=== PATIENT | female | born 1930 ===

== ENCOUNTER 2017-02-17 11:37 | Observation (INO) ==
[2017-02-17] MEDS ORDERED: NITROGLYCERIN SL 0.4 MG TABLET SL PRN (12:04)
[2017-02-17] MEDS ORDERED: ONDANSETRON 4 MG/2 ML VIAL IV STA (12:04)
[2017-02-17] MEDS ORDERED: ENOXAPARIN 100 MG/ML SYRINGE SUBCUT STA (12:04)
[2017-02-17] MEDS ORDERED: ASPIRIN 325 MG TABLET PO STA (12:04)
[2017-02-17] MEDS ORDERED: NITROGLYCERIN 2% OINT 1 INCH/GM PACK TOP STA (12:04)
--- NOTE | 2017-02-17 12:32 | XRay Report ---
History: Chest pain Date: 02/17/2017 Study: Chest x-ray PA and lateral Comparison exam: August 05, 2014 The cardiac silhouette is not enlarged. There is no mediastinal mass. The pulmonary vasculature is not engorged. There is no pleural effusion. There is no acute pulmonary infiltrate. The lungs are well-expanded. There is a prominent cardiac fat pad on the left. There is some stable fine reticular chronic interstitial disease in the mid to lower lungs more so than the upper lungs, similar to the previous study. There is osteopenia and mild thoracic spondylosis. Impression: No acute cardiopulmonary process compared to the previous study. Chronic interstitial lung disease as before PROCEDURE INTERPRETED AT [facility] DEPARTMENT OF RADIOLOGY Final Report Signed by: Dr. Sara Torres
--- NOTE | 2017-02-17 12:43 | Emergency Department Note ---
Aman Hodges Rolonda, am scribing for, and in the presence of, Moncho Ariza MD 12: 05. Annita Hodges James D, MD, personally performed the services described in this documentation, ascribed by Tre Newton in my presence, and it is both accurate and complete . Arrival - Arrival Chief Complaint: Chest Pain ED Nursing Triage Note: Brought in by EMS c/o midsternal chest pain radiating through to back-onset 1100 today. Denies pain at current. Mode of Arrival: Stretcher Limitations: No Limitations Source: Patient, Old Records Reviewed, RN Notes Reviewed - History of Present Illness HPI Narrative: Pt is an 86 y/o female who presents to the ED fir further evaluation of chest pain with an onset of hours. PMHx of angina and COPD. Pt states that she felt as if she had angina after she ate lunch. She states that she had 4 baby [employer]. She stated that the pain radiated through to her back. Pt denies diaphoresis and nausea. states that pt has a nebulizer but has not used it lately. She has no chest pain during exam. Pt is f/u by [facility]. No other complaint/pain in ED. Onset (ago): hour(s) Consistency: constant Severity: mild Severity scale (1-10): 3 Quality: other (radiating) Date of Last Menstrual Period: hysterectomy Allergies/Adverse Reactions: Allergies Allergy/AdvReac Type Severity Reaction Status Date / Time Sulfa (Sulfonamide Allergy Severe HEART RATE Verified 05/31/16 05:57 Antibiotics) DECREASES codeine Allergy Mild NAUSEA/VOMI Verified 05/31/16 05:57 TING Vkfeftc-Oii-Nzx Reductase Allergy Mild WEAKNESS/FA Verified 05/31/16 05:57 Inhibitor LLS Home Medications: Home Medications Medication Instructions Recorded Confirmed Type Levothyroxine Tab [Synthroid Tab] 100 mcg PO QAM 09/12/15 02/17/17 History Tramadol HCl [Tramadol Tab] 1 tablet PO QAM 09/12/15 02/17/17 History predniSONE [Prednisone] 5 mg PO QAM 09/12/15 02/17/17 History Gabapentin Cap/Tab [Neurontin 300 mg PO BID capsule 10/04/15 02/17/17 Rx Cap/Tab] Ipratropium/Albuterol Sulfate 3 ml INH TID 02/17/17 02/17/17 History [Iprat-Albut 0.5-3(2.5) mg/3 ml] Latanoprost [Latanoprost 0.005 % 1 drop LEFT EYE BEDTIME 02/17/17 02/17/17 History Oph Soln] Review of System - Review of System 12 point system: reviewed and no additional remarkable complaints except as stated - Review of System Constitutional: Absent: chills, diaphoresis, fever Eyes: Absent: discharge Head/Ears/Nose/Throat: Absent: earache Respiratory: Absent: cough Cardiovascular: Present: chest pain. Absent: palpitations Gastrointestinal: Absent: abdominal pain, nausea, vomiting Genitourinary female: Absent: dysuria Musculoskeletal: Absent: arm pain, neck pain Skin: Absent: rash Neurological: Absent: headache Psychiatric: Absent: anxiety Endocrine: Absent: cold intolerance Hematological/Lymphatic: Absent: easy bleeding Allergic/Immunologic: Absent: facial swelling Medical,Surgical,& Family Hx - Medical History Psychological: History of: Anxiety Disorders Neurology: History of: Peripheral Neuropathy No history of: Seizures, TIA HEENT: History of: Ear Problem, Eye Problem, Dental Problems Endocrine: History of: Dyslipidemia, Thyroid Disorder (hyper) Rheumatology: History of;: Rheumatoid Arthritis, Rheumatological Problems Respiratory: History of: Asthma, Bronchitis, COPD (KEVON), Pneumonia, Respiratory Problems Renal: No history of: Renal (Kidney) Cancer, Renal Problems Genitourinary: History of: Recurring Urinary Tract Infections (PAST HISTORY) No history of: Bladder Problem, Kidney Stones, Genitourinary Cancer, Problems Gastrointestinal: History of: GERD, GI Problems No history of: Gastrointestinal Bleed, Hemorrhoids, Hematochezia, Hepatitis, Liver Problems, Gastrointestinal Cancer Musculoskeletal: History of: Degenerative Disk Disease, Osteoporosis ( osteoarthritis), Musculoskeletal Problems Hematology: No history of: Blood Transfusion Reaction, Bleeding Problems Reproductive: No history of: Reproductive Problems - Surgical History Cardiac Surgeries: Patient Denies: Cardiac Catheterization Thoracic Surgeries: Patient denies;: Organ Transplant Neurologic Surgeries: Patient denies: Neurologic Surgery HEENT Surgeries: Surgical HX of: Eye Surgery (cataract 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), Tonsilectomy & Adenoidectomy (has one tonsil) Patient denies: Thyroid Surgery Abdominal Surgeries: Surgical HX of: Abdominal Surgery, Appendectomy, Cholecystectomy, EGD, Hernia Repair Patient denies: Gastric Bypass Surgery Reproductive Surgeries: Surgical HX of;: Section (1), Gynecologic Surgery, Hysterectomy Patient denies;: Genitourinary Surgery Orthopedic Surgeries: Surgical HX of;: Orthopedic Surgery (lt tkr), Total Hip Replacement (right), Total Knee Replacement - Family History Family History: Reports;: Family Cancer (mom), Family Diabetes (dad), Family Heart Disease (dad and brothers), Family Hypertension, Family Stroke (dad) - Social History Smoking Status: Smoker, status unknown Frequency of Alcohol Use: None Type of Drug Use: None Exam Vital Signs: Vital Signs Temperature 98.0 F 02/17/17 11:44 Pulse Rate 80 02/17/17 13:00 Respiratory Rate 18 02/17/17 13:00 Blood Pressure 148/70 02/17/17 13:00 O2 Sat by Pulse Oximetry 99 02/17/17 13:00 GENERAL: This is a well-nourished well-developed white female in no apparent distress. VITAL SIGNS: Reviewed HEENT: Head is atraumatic and normocephalic. Pupils are equal round react to light. Extraocular movements are intact. Oropharynx is benign with moist mucous membranes. NECK: Neck is soft and supple without tenderness. There are no masses. There is no lymphadenopathy. LUNGS: Lungs are clear to auscultation. Chest rises symmetrically. There is no chest wall tenderness. CV: Heart is regular rate and rhythm without murmurs rubs or gallops. ABDOMEN: Abdomen is soft, nontender to palpation. There are no abdominal abnormal masses palpated. There is no organomegaly. Bowel sounds are present and active. SKIN: Skin is warm and dry. No rash. EXTREMITIES: Patient has full range of motion without tenderness. There is no pedal edema. NEUROLOGIC: Awake alert and oriented 4. Cranial nerves II through XII are intact. Motor is 5 over 5 in all extremities bilaterally. Course - Consultations Consultation #1: Discussed with Dr. Erum Velasquez. Patient will be admitted to her service. Initial orders written for her. She will assume care of the patient upon patient's arrival to the lund. Time: 13:48 Results - Labs CBC & BMP: 02/17/17 11:55 02/17/17 11:55 Lab Results: I have reviewed the patients labs Labs: Laboratory Tests 02/17/17 11:55 Troponin I < 0.015 - EKG EKG results: interpreted by ERMD - Impressions EKG: Normal sinus rhythm with rate 85, low voltage QRS, nonspecific ST-T wave changes. - Diagnostic Findings Procedure: Chest x-ray: image reviewed by me (No infiltrates, no pleural effusions.) Disposition Clinical Impression: Chest pain Case discussed with: patient, patient's family Disposition: Still a Patient Condition: Stable
[2017-02-17] MEDS ORDERED: ENOXAPARIN 100 MG/ML SYRINGE SUBCUT ONE (12:45)
[2017-02-17] MEDS ORDERED: NITROGLYCERIN 2% OINT 1 INCH/GM PACK TOP ONE (12:46)
[2017-02-17 12:51] LABS: Basophils % 0.3 % (0.0-0.8); Eosinophils # 0.1 10*3/uL (0.0-0.87); Eosinophils % 0.8 % (0.00-10.9); Hematocrit 34.4 VOL% (35.7-47.0); Immature Granulocytes % 0.8 %; Immature Granulocytes Absolute 0.09 #; Lymphocytes # 1.4 10*3/uL (1.4-4.0); Lymphocytes % 11.5 % (21.3-54.2); Mean Corpuscular Hemoglobin 30 PG (27-34); Mean Corpuscular Volume 92.5 FL (87-102); Mean Platelet Volume 10.3 FL (9.6-12.0); Monocytes # 0.8 10*3/uL (0.11-0.8); Monocytes % 6.4 % (1.7-12.7); Neutrophils # 9.6 10*3/uL (1.4-7.4); Neutrophils % 80.2 % (38.7-73.9); Platelet Count 277 T/CUMM (130-400); Red Blood Count 3.72 MC/CUMM (3.8-5.5); Red Cell Distribution Width 13.9 % (9.3-17.3)
[2017-02-17 13:09] LABS: PT Patient Result 10.2 SECS; Partial Thromboplastin Time 24.1 SECS (0-40)
[2017-02-17 13:24] LABS: Albumin 2.9 G/DL (3.4-5.0); Bilirubin,Total 0.9 MG/DL (0.2-1.0); Calcium 8.9 MG/DL (8.5-10.1); Osmolality,Calculated 275.8 MOS/KG (273-304); Potassium 4.2 MMOL/L (3.5-5.1); Total Protein 6.9 G/DL (6.4-8.3)
[2017-02-17] MEDS ORDERED: GABAPENTIN 300 MG CAPSULE PO STA (14:05)
[2017-02-17] MEDS ORDERED: GABAPENTIN 300 MG CAPSULE ONE (14:07)
--- NOTE | 2017-02-17 14:43 | Rheumatology Consultation ---
Assessment and Plan - Time spent with patient Time spent with patient: Greater than 30 minutes (1) Chest pain Status: Acute Assessment and plan: Ms. Callahan an 86 Y pleasant female with history of COPD and Rheumatoid arthritis is in ED with new onset acute chest pain, which involves anterior chest wall at costochondral junction. She has had EKG and trop done are unremarkable. Agree with plan to get serial EKG and trops for suspicious for CAD . Current Visit: Yes (2) Rheumatoid arthritis Problem details: left more so than right Status: Chronic Current Visit: No Qualifiers: Rheumatoid arthritis location: knee Laterality: bilateral (3) Costochondritis Status: Acute Assessment and plan: Ms. Callahan an 86 Y pleasant female with history of COPD and Rheumatoid arthritis is in ED with new onset acute chest pain, which involves anterior chest wall at costochondral junction, which is tender on palpation and is highly consistent with Costochondritis and less likely Pleuritis. She has history of COPD and has not had CT chest done in recent past to evaluate for pulmonary bleb. X-ray chest is unremarkable. She has no signs of dyspnea or hypoxemia or EKG abnormality suggestive of PE or acute RI. She has had EKG and trop done are unremarkable. I recommend CT chest for further evaluation. Agree with ED physician's plan to get serial EKG and trops to evaluate for chest pain. If EKG, trops are negative are unremarkable, then I recommend to start her on higher dose oral prednisone at dose of 15 mg bid for next 7 days and then decrease her dose back to home dose of 5 mg bid. Also recommend to provide GI prophylaxis with omeprazole 20 mg daily for next 7 days. She has history of RA, for which she is on oral prednisone 5 mg bid and tramadol prn. She has mild active joints RA, which will require evaluation as outpatient at our office. I am very thankful to Dr. Erum Velasquez to provide me opportunity to participate in patient care. Please feel free to call me for further questions. Current Visit: Yes History of Present Illness - Data of Consult Patient: new to practice Consult date: 02/17/17 Requesting Physician: Erum Velasquez - Consult Narrative Reason for consult: chest pain History of present illness: Ms. Callahan is a 86 year old female, with history of rheumatoid arthritis and COPD is here in ED for new onset chest pain. According to patient, she was in her usual state of health till 11 am in morning, when she noticed acute onset anterior chest wall pain, moderate intensity, localized to midsternum, worsens with deep breath and improves with nothing. She denies similar symptoms in past. She denies fever, chills, cough, night sweats, sputum production, weight loss or nausea. She lives at assist living home. She has had recent exposure to her daughter, who has active sinus infection. She was diagnosed with RA few years ago. She was initially managed with methotrexate and later on Humira, but she developed some side effects involved with lungs. She was then kept on azathioprine by Dr. Shannon (mangle tender) at [place]. She stopped taking azathioprine for last 6 months as she noticed nausea with medication. She is currently on oral prednisone 5 mg bid and Tramadol as needed. CC: Erum Velasquez, DO - Home Medications and Allergies Home Medications: Home Medications Medication Instructions Recorded Confirmed Type Levothyroxine Tab [Synthroid Tab] 100 mcg PO DAILY@0700 09/12/15 02/17/17 History Tramadol HCl [Tramadol Tab] 1 tablet PO QAM 09/12/15 02/17/17 History predniSONE [Prednisone] 5 mg PO QAM 09/12/15 02/17/17 History Gabapentin Cap/Tab [Neurontin 300 mg PO BID capsule 10/04/15 02/17/17 Rx Cap/Tab] Ipratropium/Albuterol Sulfate 3 ml INH TID 02/17/17 02/17/17 History [Iprat-Albut 0.5-3(2.5) mg/3 ml] Latanoprost [Latanoprost 0.005 % 1 drop LEFT EYE BEDTIME 02/17/17 02/17/17 History Oph Soln] Allergies/Adverse Reactions: Allergies Allergy/AdvReac Type Severity Reaction Status Date / Time Sulfa (Sulfonamide Allergy Severe HEART RATE Verified 05/31/16 05:57 Antibiotics) DECREASES codeine Allergy Mild NAUSEA/VOMI Verified 05/31/16 05:57 TING Gwoscuc-Ijm-Pzs Reductase Allergy Mild WEAKNESS/FA Verified 05/31/16 05:57 Inhibitor LLS Medical,Surgical,& Family Hx - Medical History Psychological: History of: Anxiety Disorders Neurology: History of: Peripheral Neuropathy No history of: Seizures, TIA HEENT: History of: Ear Problem, Eye Problem, Dental Problems Endocrine: History of: Dyslipidemia, Thyroid Disorder (hyper) Rheumatology: History of;: Rheumatoid Arthritis, Rheumatological Problems Respiratory: History of: Asthma, Bronchitis, COPD (KEVON), Pneumonia, Respiratory Problems Renal: No history of: Renal (Kidney) Cancer, Renal Problems Genitourinary: History of: Recurring Urinary Tract Infections (PAST HISTORY) No history of: Bladder Problem, Kidney Stones, Genitourinary Cancer, Problems Gastrointestinal: History of: GERD, GI Problems No history of: Gastrointestinal Bleed, Hemorrhoids, Hematochezia, Hepatitis, Liver Problems, Gastrointestinal Cancer Musculoskeletal: History of: Degenerative Disk Disease, Osteoporosis ( osteoarthritis), Musculoskeletal Problems Hematology: No history of: Blood Transfusion Reaction, Bleeding Problems Reproductive: No history of: Reproductive Problems - Surgical History Cardiac Surgeries: Patient Denies: Cardiac Catheterization Thoracic Surgeries: Patient denies;: Organ Transplant Neurologic Surgeries: Patient denies: Neurologic Surgery HEENT Surgeries: Surgical HX of: Eye Surgery (cataract 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), Tonsilectomy & Adenoidectomy (has one tonsil) Patient denies: Thyroid Surgery Abdominal Surgeries: Surgical HX of: Abdominal Surgery, Appendectomy, Cholecystectomy, EGD, Hernia Repair Patient denies: Gastric Bypass Surgery Reproductive Surgeries: Surgical HX of;: Section (1), Gynecologic Surgery, Hysterectomy Patient denies;: Genitourinary Surgery Orthopedic Surgeries: Surgical HX of;: Orthopedic Surgery (lt tkr), Total Hip Replacement (right), Total Knee Replacement - Family History Family History: Reports;: Family Cancer (mom), Family Diabetes (dad), Family Heart Disease (dad and brothers), Family Hypertension, Family Stroke (dad) - Social History Smoking Status: Smoker, status unknown Frequency of Alcohol Use: None Type of Drug Use: None Exam Rheumatology - Constitutional Vitals: Vital Signs Temp Pulse Resp BP BP Pulse Ox 02/17/17 13:00 80 18 148/70 99 02/17/17 12:30 82 153/95 99 02/17/17 12:00 84 163/86 99 02/17/17 11:44 98.0 F 96 H 20 179/91 96 General appearance: no acute distress, over weight Exam: localized tenderness at anterior chest wall at 3-6 ribs bilateral at Costochondral junction - Head Head exam: Present: normal inspection - Eye Eye exam: Present: EOMI Pupils: Present: RYLEY - ENT ENT exam: Present: normal exam, normal oropharynx - Neck Neck exam: Present: normal inspection - Expanded Respiratory Exam Location: Right Lower: decreased breath sounds - Cardiovascular Cardiovascular exam: Present: regular rate and rhythm - GI/Abdominal GI/Abdominal exam: Present: normal bowel sounds - Extremities Exam Extremities exam: Present: normal inspection - Neurological Exam Neurological exam: Present: oriented X3, CN II-XII intact - Psychiatric Psychiatric exam: Present: normal affect - Skin Skin exam: Present: normal color Results - Labs CBC & BMP: 02/17/17 11:55 02/17/17 11:55 - Diagnostic Findings Procedure: Chest x-ray: image reviewed by me, report reviewed by me Specialty Discharge - Follow Up or Referrals Follow up with: Guido Calero MD [Physician] - 1 Month
--- NOTE | 2017-02-17 15:01 | EKG Report ---
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
--- NOTE | 2017-02-17 15:40 | EKG Report ---
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
[2017-02-17] MEDS ORDERED: ACETAMINOPHEN 325 MG TABLET PO PRN (15:48)
[2017-02-17] MEDS ORDERED: ONDANSETRON 4 MG/2 ML VIAL IV PRN (15:48)
--- NOTE | 2017-02-17 17:21 | Internal Med History&Physical ---
Assessment and Plan (1) Asthma Status: Chronic Current Visit: Yes Qualifiers: Asthma severity: mild intermittent Asthma complication type: with acute exacerbation Qualified Code(s): J45.21 - Mild intermittent asthma with (acute ) exacerbation (2) Rheumatoid arthritis Problem details: left more so than right Status: Chronic Current Visit: Yes Qualifiers: Rheumatoid arthritis location: knee Rheumatoid factor presence: with rheumatoid factor Laterality: bilateral Qualified Code(s): M05.761 - Rheumatoid arthritis with rheumatoid factor of right knee without organ or systems involvement; M05.762 - Rheumatoid arthritis with rheumatoid factor of left knee without organ or systems involvement (3) Anemia Status: Chronic Current Visit: Yes Qualifiers: Anemia type: iron deficiency Iron deficiency anemia type: inadequate dietary iron intake Qualified Code(s): D50.8 - Other iron deficiency anemias (4) COPD (chronic obstructive pulmonary disease) Status: Chronic Current Visit: Yes (5) Chest pain Status: Acute Current Visit: Yes Qualifiers: Chest pain type: intercostal pain Qualified Code(s): R07.82 - Intercostal pain (6) Costochondritis Status: Acute Current Visit: Yes (7) Hypertension Status: Chronic Current Visit: Yes Qualifiers: Hypertension type: essential hypertension Qualified Code(s): I10 - Essential (primary) hypertension History of Present Illness Chief complaint: chest pain History of present illness: Ms. Callahan is a 86 year old female with history of RA frequently uncontrolled joint pain, chronic pain, OA, HTN, hypothyroid, anemia of iron deficiency and poor dietary intake, COPD/asthma/bronchitis, restrictive airway disease, who presented to ER with persistent chest pain and shortness of breath. Dr. Calero was consulted for uncontrolled RA and to establish. Will order CT chest and solumedrol. CT results and DMARDs to be evaluated and adjusted per Dr. Calero. Chest pain likely non-cardiac. Home Medications Medication Instructions Recorded Confirmed Type Levothyroxine Tab [Synthroid Tab] 100 mcg PO DAILY@0700 09/12/15 02/17/17 History Tramadol HCl [Tramadol Tab] 1 tablet PO QAM 09/12/15 02/17/17 History predniSONE [Prednisone] 5 mg PO QAM 09/12/15 02/17/17 History Gabapentin Cap/Tab [Neurontin 300 mg PO BID capsule 10/04/15 02/17/17 Rx Cap/Tab] Ipratropium/Albuterol Sulfate 3 ml INH TID 02/17/17 02/17/17 History [Iprat-Albut 0.5-3(2.5) mg/3 ml] Latanoprost [Latanoprost 0.005 % 1 drop LEFT EYE BEDTIME 02/17/17 02/17/17 History Oph Soln] Allergies Allergy/AdvReac Type Severity Reaction Status Date / Time Sulfa (Sulfonamide Allergy Severe HEART RATE Verified 05/31/16 05:57 Antibiotics) DECREASES codeine Allergy Mild NAUSEA/VOMI Verified 05/31/16 05:57 TING Htqkbcr-Bzh-Yzi Reductase Allergy Mild WEAKNESS/FA Verified 05/31/16 05:57 Inhibitor LLS Medical,Surgical,& Family Hx - Medical History Cardio: History of: Hypertension Psychological: History of: Anxiety Disorders Neurology: History of: Peripheral Neuropathy No history of: Seizures, TIA HEENT: History of: Ear Problem, Eye Problem, Dental Problems Endocrine: History of: Dyslipidemia, Thyroid Disorder (hypothyroid) Rheumatology: History of;: Rheumatoid Arthritis, Rheumatological Problems Respiratory: History of: Asthma, Bronchitis, COPD (KEVON), Pneumonia, Respiratory Problems Renal: No history of: Renal (Kidney) Cancer, Renal Problems Genitourinary: History of: Recurring Urinary Tract Infections (PAST HISTORY) No history of: Bladder Problem, Kidney Stones, Genitourinary Cancer, Problems Gastrointestinal: History of: GERD, GI Problems No history of: Gastrointestinal Bleed, Hemorrhoids, Hematochezia, Hepatitis, Liver Problems, Gastrointestinal Cancer Musculoskeletal: History of: Degenerative Disk Disease, Osteoporosis ( osteoarthritis), Musculoskeletal Problems Hematology: History of: Anemia No history of: Blood Transfusion Reaction, Bleeding Problems Reproductive: No history of: Reproductive Problems - Surgical History Cardiac Surgeries: Patient Denies: Cardiac Catheterization Thoracic Surgeries: Patient denies;: Organ Transplant Neurologic Surgeries: Patient denies: Neurologic Surgery HEENT Surgeries: Surgical HX of: Eye Surgery (cataract 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), Tonsilectomy & Adenoidectomy (has one tonsil) Patient denies: Thyroid Surgery Abdominal Surgeries: Surgical HX of: Abdominal Surgery, Appendectomy, Cholecystectomy, EGD, Hernia Repair Patient denies: Gastric Bypass Surgery Reproductive Surgeries: Surgical HX of;: Section (1), Gynecologic Surgery, Hysterectomy Patient denies;: Genitourinary Surgery Orthopedic Surgeries: Surgical HX of;: Orthopedic Surgery (lt tkr), Total Hip Replacement (right), Total Knee Replacement - Family History Family History: Reports;: Family Cancer (mom), Family Diabetes (dad), Family Heart Disease (dad and brothers), Family Hypertension, Family Stroke (dad) - Social History Smoking Status: Former smoker Have you smoked in the last 12 months: No (quit smoking about 5-6 years ago) Frequency of Alcohol Use: None Type of Drug Use: None Marital Status: Lives With:: assisted living Functional capacity: uses cane/walker - Constitutional Constitutional: Present: weakness - Cardiovascular Cardiovascular: Present: chest pain with activity - Respiratory Respiratory: Present: dyspnea, wheezing - Musculoskeletal Musculoskeletal: Present: arthralgias, back pain - Neurological Neurological: Present: focal weakness, frequent falls, paresthesias Exam - Constitutional Vitals: Period Temp Pulse Resp BP Sys/Melgoza Pulse Ox Last 24 Hr 97.1 F-98.0 F 80-101 16-22 132-179/60-95 94-99 General appearance: no acute distress - Head Head exam: Present: normocephalic - Eye Eye exam: Present: EOMI - Respiratory Respiratory exam: Present: wheezes (scattered and diffuse upon expiration) - Cardiovascular Cardiovascular exam: Present: regular rate and rhythm, systolic murmur (soft) - GI/Abdominal GI/Abdominal exam: Present: soft. Absent: tenderness - Extremities Exam Extremities exam: Absent: edema - Neurological Exam Neurological exam: Present: alert, oriented X3 - Psychiatric Psychiatric exam: Present: normal mood - Skin Skin exam: Present: warm, dry Results - Labs CBC & BMP: 02/17/17 11:55 02/17/17 11:55 - EKG EKG shows: sinus rhythm - Diagnostic Findings Procedure: Chest x-ray: report reviewed by me, image reviewed by me (unchanged interstial fibrosis)
[2017-02-17] MEDS ORDERED: traMADol 50 MG TABLET PO PRN (19:06)
[2017-02-17] MEDS ORDERED: traZODone 50 MG TABLET PO PRN (19:07)
[2017-02-17] MEDS: methylPREDNISolone SOD SUC 40 MG/1 ML VIAL IV SCH (19:31)
[2017-02-17] MEDS: SODIUM CHLORIDE 0.9% 1,000 ML IV SCH (19:31)
[2017-02-17] MEDS: ALBUTEROL/IPRATROPIUM 3 ML NEB RESP TX SCH (20:36)
[2017-02-17] MEDS: BUDESONIDE 0.25 MG/2 ML NEB RESP TX SCH (20:36)
[2017-02-17 20:56] LABS: Apearance,Urine CLOUDY (Clear); Bacteria,Urine Occasional /HPF (Few); Bilirubin,Urine Negative (Negative); Blood, Urine Small mg/dL (Negative); Glucose,Urine (UA) Negative (Negative); Ketones,Urine Negative (Negative); Mucus,Urine Occasional /LPF (Occasional); Nitrite,Urine Negative (Negative); Protein,Urine Negative; RBC,Urine 1 /HPF (0-4); Squamous Epithelial Cell,Urine Occasional /HPF (0-10); Urine Color Yellow (Yellow); Urine Specific Gravity 1.008 (1.001-1.035); Urine Urobilinogen < 2.0 EU/DL (0.2-1.0); WBC,Urine 1 /HPF (0-6)
[2017-02-17] MEDS ORDERED: LATANOPROST 0.005% OPH SOLN 2.5 ML BOTTLE LEFT EYE SCH (21:00)
[2017-02-17] MEDS: GABAPENTIN 300 MG CAPSULE PO SCH (21:25)
[2017-02-17] MEDS: DOCUSATE SODIUM 100 MG CAPSULE PO SCH (21:25)
[2017-02-17] MEDS ORDERED: KETOROLAC 15 MG/1 ML VIAL IV SCH (22:00)
[2017-02-17] MEDS ORDERED: cloNIDine 0.1 MG TABLET PO SCH (22:30)
[2017-02-18] MEDS: SODIUM CHLORIDE 0.9% 1,000 ML IV SCH ×2 (00:51→04:00)
[2017-02-18] MEDS: methylPREDNISolone SOD SUC 40 MG/1 ML VIAL IV SCH ×2 (03:07→10:22)
[2017-02-18 06:27] LABS: Alanine Aminotransferase 15 U/L (13-56); Albumin 2.7 G/DL (3.4-5.0); Alkaline Phosphatase 52 U/L (45-117); Aspartate Amino Transferase 13 U/L (0-37); Bilirubin,Total < 0.39 MG/DL (0.2-1.0); Blood Urea Nitrogen 18 MG/DL (7-18); Calcium 8.6 MG/DL (8.5-10.1); Glucose 158 MG/DL (74-106); Magnesium 2.4 MG/DL (1.8-2.4); Osmolality,Calculated 281.5 MOS/KG (273-304); Potassium 4.7 MMOL/L (3.5-5.1); Sodium 139 MMOL/L (136-145); Thyroid Stimulating Hormone 0.355 uIU/ml (0.358-3.74); Total Protein 6.3 G/DL (6.4-8.3)
[2017-02-18 06:31] LABS: 25 Hydroxy Vitamin D Total 5.8 NG/ML
[2017-02-18] MEDS ORDERED: LEVOTHYROXINE 100 MCG TABLET PO SCH (07:00)
[2017-02-18] MEDS: BUDESONIDE 0.25 MG/2 ML NEB RESP TX SCH (07:56)
[2017-02-18] MEDS: ALBUTEROL/IPRATROPIUM 3 ML NEB RESP TX SCH (07:56)
[2017-02-18] MEDS ORDERED: ENOXAPARIN 30 MG/0.3 ML SYRINGE SUBCUT SCH (08:00)
--- NOTE | 2017-02-18 08:34 | CT Report ---
History: Chest pain. Rheumatoid arthritis Date: 02/18/2017 Study: CT chest with and without IV contrast Comparison exam: No previous Spiral CT sections were obtained through the lungs before and after the IV administration of 80 mL of Omnipaque 350 without immediate complication. The CT exam was performed using one or more of the following dose reduction techniques: Automated exposure control, adjustment of the mA and/or kV according to patient size, or use of iterative reconstruction technique. There is no thoracic aortic aneurysm or dissection. There is no mediastinal mass. There is no abelardo mediastinal lymphadenopathy by short axis diameter criteria. There is no obvious pulmonary embolus. There is trace pericardial fluid. There is no significant pleural effusion. There is some dependent atelectasis in the lower lungs. There is no confluent airspace disease to suggest pneumonia. There is no pulmonary mass. There are some scattered mild to moderate thoracic spondylosis. There are some rounded simple cysts of the partially visualized kidneys bilaterally Impression: No acute process. Dependent atelectasis in the lower lungs. Bilateral benign renal cysts PROCEDURE INTERPRETED AT [facility] DEPARTMENT OF RADIOLOGY Final Report Signed by: Dr. Sara Torres
[2017-02-18] MEDS ORDERED: traMADol 50 MG TABLET PO SCH (09:00)
[2017-02-18] MEDS ORDERED: PANTOPRAZOLE 40 MG TABLET PO SCH (09:00)
[2017-02-18] MEDS ORDERED: predniSONE 5 MG TABLET PO SCH (09:00)
[2017-02-18] MEDS: GABAPENTIN 300 MG CAPSULE PO SCH (10:21)
[2017-02-18] MEDS: DOCUSATE SODIUM 100 MG CAPSULE PO SCH (10:21)
[2017-02-18] MEDS ORDERED: ERGOCALCIFEROL 50,000 UNIT CAPSULE PO ONE (11:47)
[2017-02-18 17:01] VITALS: BP 176/83
--- NOTE | 2017-02-18 18:03 | Discharge Summary ---
Hospital Course - Hospital Course Hospital Course: Ms. Callahan is a 86 year old female with history of RA frequently uncontrolled joint pain, chronic pain, OA, HTN, hypothyroid, anemia of iron deficiency and poor dietary intake, COPD/asthma/bronchitis, restrictive airway disease, who presented to ER with persistent chest pain and shortness of breath. Dr. Calero was consulted for uncontrolled RA and to establish. Will order CT chest and solumedrol. CT results and DMARDs to be evaluated and adjusted per Dr. Calero. Chest pain likely non-cardiac. She is feeling much better today after receiving Toradol and Solumedrol. CT chest largely unremarkable except for atelectasis. She will be discharged to home on Prednisone taper. Diagnosis - Discharge Diagnosis (1) Asthma Status: Chronic (2) Rheumatoid arthritis Status: Chronic (3) Anemia Status: Chronic (4) COPD (chronic obstructive pulmonary disease) Status: Chronic (5) Chest pain Status: Acute (6) Costochondritis Status: Acute (7) Hypertension Status: Chronic Specialty Discharge - Follow Up or Referrals Follow up with: Guido Calero MD [Physician] - 1 Month Discharge Plan - Discharge Data Disposition: Disch To Home/Self Care Condition at Discharge: Stable Discharge Diet: low fat, low cholesterol - Discharge Medications New cloNIDine TAB [Catapres Tab] 0.1 mg PO BEDTIME #30 tablet Docusate Sodium Cap [Colace Cap] 100 mg PO BID capsule Acetaminophen Tab [Tylenol Tab] 650 mg PO Q6H PRN tablet PRN Reason: Fever > 100.4 Or Headache Latanoprost 0.005% Oph Soln [Xalatan 0.005% Oph Soln] 1 drop LEFT EYE BEDTIME bottle Continue Tramadol HCl [Tramadol Tab] 1 tablet PO QAM Ipratropium/Albuterol Sulfate [Iprat-Albut 0.5-3(2.5) mg/3 ml] 3 ml INH TID Latanoprost [Latanoprost 0.005 % Oph Soln] 1 drop LEFT EYE BEDTIME Gabapentin Cap/Tab [Neurontin Cap/Tab] 300 mg PO BID capsule Changed Levothyroxine Tab [Synthroid Tab] 75 mcg PO DAILY@0700 #30 predniSONE [Prednisone] 15 mg PO QAM #10 tablet - Follow Up or Referral Follow Up: Guido Calero MD [Physician] - 1 Month Erum Velasquez DO [Primary Care Provider] - - Forms/Instructions Additional Discharge Instructions: Follow up with Dr. Calero in clinic per appointment set. Follow up with Dr. Herb Velasqeuz in clinic within 1-2 weeks. Exam - Constitutional Vitals: Period Temp Pulse Resp BP Sys/Melgoza Pulse Ox Last 24 Hr 96.3 F-98.4 F 71-99 16-108 138-180/62-84 94-99 General appearance: no acute distress - Respiratory Respiratory exam: Present: clear to auscultation bilaterally (wheezes resolved) - Cardiovascular Cardiovascular exam: Present: regular rate and rhythm - GI/Abdominal GI/Abdominal exam: Absent: tenderness - Extremities Exam Extremities exam: Absent: edema - Neurological Exam Neurological exam: Present: alert - Psychiatric Psychiatric exam: Present: normal affect - Skin Skin exam: Present: warm, dry Discharge Results Labs on day of discharge: Labs from last 24 hours 02/18/17 02/18/17 02/17/17 04:51 04:51 Unknown Sodium 139 Potassium 4.7 Chloride 105 Carbon Dioxide 30 Anion Gap 8.7 BUN 18 Creatinine 0.60 GFR Calculation 81 BUN/Creatinine Ratio 30.00 H Glucose 158 H Calculated Osmolality 281.5 Calcium 8.6 Magnesium 2.4 Total Bilirubin < 0.39 AST 13 ALT 15 Alkaline Phosphatase 52 Troponin I Total Protein 6.3 L Albumin 2.7 L Globulin 3.6 H Albumin/Globulin Ratio 0.7 L Vitamin B12 441 25-OH Vitamin D Total 5.8 TSH 3rd Generation 0.355 L Urine Color Yellow Urine Appearance Cloudy Urine pH 7.0 Ur Specific Orange 1.008 Urine Protein Negative Urine Glucose (UA) Negative Urine Ketones Negative Urine Blood Small Urine Nitrate Negative Urine Bilirubin Negative Urine Urobilinogen < 2.0 H Urine Leukocytes Trace Urine RBC 1 Urine WBC 1 Ur Squamous Epith Cells Occasional Urine Bacteria Occasional Urine Mucus Occasional Ur Culture Indicated? Not indicated 02/17/17 17:28 Sodium Potassium Chloride Carbon Dioxide Anion Gap BUN Creatinine GFR Calculation BUN/Creatinine Ratio Glucose Calculated Osmolality Calcium Magnesium Total Bilirubin AST ALT Alkaline Phosphatase Troponin I < 0.015 Total Protein Albumin Globulin Albumin/Globulin Ratio Vitamin B12 25-OH Vitamin D Total TSH 3rd Generation Urine Color Urine Appearance Urine pH Ur Specific Orange Urine Protein Urine Glucose (UA) Urine Ketones Urine Blood Urine Nitrate Urine Bilirubin Urine Urobilinogen Urine Leukocytes Urine RBC Urine WBC Ur Squamous Epith Cells Urine Bacteria Urine Mucus Ur Culture Indicated? - Imaging and Cardiology Procedure: CT - chest: report reviewed by me DS: Provider Date of admission: 02/17/17 13:45 Primary care physician: Erum Velasquez DO Attending physician on admission: Erum Velasquez DO Consults: 02/17/17 15:48 Consult to Case Mgmt/Social Srvs [CONS] Routine Reason for Case Mgmt/Social Srvs: Discharge Planning Consult to Physician [CONS] Routine Comment: RA Consulting Provider: Guido Calero Discharging clinician: Erum Velasquez DO Expected date of discharge: 02/18/17
== END 2017-02-18 19:26 | disposition home or self-care (01) ==
LOC: EDBD → EDUNIT# → N.ED 11:37 → N.EDINP 11:37 → N.TELEN 15:35
PROVIDERS: ADMIT Internal Medicine; ATTEND Internal Medicine

== ENCOUNTER 2017-07-07 15:07 | Inpatient (IN) ==
[2017-07-07] MEDS ORDERED: cefTRIAXone 1,000 MG in SODIUM CHLORIDE 0.9% 100 ML IV STA (16:02)
[2017-07-07 16:41] LABS: Amorphous Crystals,Urine Occasional /HPF (Few); Apearance,Urine Slightly Hazy (Clear); Bilirubin,Urine Negative (Negative); Blood, Urine Small mg/dL (Negative); Glucose,Urine (UA) Negative (Negative); Ketones,Urine 5 mg/dL (Negative); Mucus,Urine Occasional /LPF (Occasional); Nitrite,Urine Positive (Negative); Protein,Urine Negative; Squamous Epithelial Cell,Urine Occasional /HPF (0-10); Urine Specific Gravity 1.017 (1.001-1.035); WBC,Urine 24 /HPF (0-6)
[2017-07-07 16:42] LABS: Urine Color ORANGE (Yellow)
[2017-07-07 16:47] LABS: Basophils % 0.2 % (0.0-0.8); Eosinophils # 0.2 10*3/uL (0.0-0.87); Eosinophils % 1.9 % (0.00-10.9); Hematocrit 35.4 VOL% (35.7-47.0); Hemoglobin 10.9 GM/DL (12.0-16.0); Immature Granulocytes % 1.2 %; Immature Granulocytes Absolute 0.14 #; Lymphocytes # 2.1 10*3/uL (1.4-4.0); Lymphocytes % 17.1 % (21.3-54.2); Mean Corpuscular HGB Conc 30.8 GM/DL (32-36); Mean Corpuscular Hemoglobin 29 PG (27-34); Mean Corpuscular Volume 94.4 FL (87-102); Mean Platelet Volume 10.2 FL (9.6-12.0); Monocytes % 7.9 % (1.7-12.7); Neutrophils # 8.7 10*3/uL (1.4-7.4); Neutrophils % 71.7 % (38.7-73.9); Platelet Count 274 T/CUMM (130-400); Red Blood Count 3.75 MC/CUMM (3.8-5.5); Red Cell Distribution Width 14.9 % (9.3-17.3); White Blood Count 12.1 T/CUMM (4-12)
[2017-07-07] MEDS ORDERED: KETOROLAC 30 MG/1 ML VIAL IV STA (16:47)
[2017-07-07] MEDS ORDERED: KETOROLAC 30 MG/1 ML VIAL ONE (16:48)
[2017-07-07 17:12] LABS: Albumin 2.7 G/DL (3.4-5.0); Bilirubin,Total 0.4 MG/DL (0.2-1.0); Calcium 9.1 MG/DL (8.5-10.1); Osmolality,Calculated 278.8 MOS/KG (273-304); Potassium 4.3 MMOL/L (3.5-5.1); Total Protein 6.7 G/DL (6.4-8.3)
[2017-07-07] MEDS ORDERED: cefTRIAXone 1,000 MG VIAL ONE (17:14)
[2017-07-07] MEDS ORDERED: SODIUM CHLORIDE 0.9% 50 ML IV ONE (17:14)
[2017-07-07] MEDS ORDERED: ONDANSETRON 4 MG/2 ML VIAL IV PRN (21:12)
[2017-07-07] MEDS ORDERED: ACETAMINOPHEN 325 MG TABLET PO PRN (21:12)
[2017-07-07] MEDS: DOCUSATE SODIUM 100 MG CAPSULE PO SCH (22:40)
[2017-07-07] MEDS: traMADol 50 MG TABLET PO PRN (22:40)
[2017-07-08] MEDS ORDERED: LIDOCAINE 5% PATCH TRANSDERM PRN (01:07)
[2017-07-08] MEDS ORDERED: ACETAMINOPHEN 500 MG TABLET PO PRN (01:07)
[2017-07-08] MEDS: methylPREDNISolone SOD SUC 40 MG/1 ML VIAL IV SCH ×3 (02:40→18:02)
[2017-07-08] MEDS: ALBUTEROL/IPRATROPIUM 3 ML NEB RESP TX SCH ×3 (03:35→13:48)
[2017-07-08] MEDS: KETOROLAC 15 MG/1 ML VIAL IV SCH ×3 (06:00→21:13)
[2017-07-08] MEDS: LEVOTHYROXINE 100 MCG TABLET PO SCH (06:49)
[2017-07-08 07:24] LABS: Basophils % 0.3 % (0.0-0.8); Eosinophils # 0.1 10*3/uL (0.0-0.87); Eosinophils % 0.8 % (0.00-10.9); Hematocrit 34.2 VOL% (35.7-47.0); Hemoglobin 10.6 GM/DL (12.0-16.0); Immature Granulocytes Absolute 0.12 #; Lymphocytes # 0.6 10*3/uL (1.4-4.0); Lymphocytes % 5.3 % (21.3-54.2); Mean Corpuscular Hemoglobin 29 PG (27-34); Mean Corpuscular Volume 93.4 FL (87-102); Mean Platelet Volume 10.6 FL (9.6-12.0); Monocytes # 0.3 10*3/uL (0.11-0.8); Monocytes % 2.2 % (1.7-12.7); Neutrophils # 10.7 10*3/uL (1.4-7.4); Neutrophils % 90.4 % (38.7-73.9); Platelet Count 260 T/CUMM (130-400); Red Blood Count 3.66 MC/CUMM (3.8-5.5); Red Cell Distribution Width 14.6 % (9.3-17.3); White Blood Count 11.8 T/CUMM (4-12)
[2017-07-08 07:51] LABS: Calcium 8.4 MG/DL (8.5-10.1); Potassium 4.6 MMOL/L (3.5-5.1)
[2017-07-08] MEDS ORDERED: traMADol 50 MG TABLET PO SCH (09:00)
[2017-07-08] MEDS: DOCUSATE SODIUM 100 MG CAPSULE PO SCH ×4 (09:39→21:12)
[2017-07-08] MEDS: PANTOPRAZOLE 40 MG TABLET PO SCH (09:42)
[2017-07-08] MEDS: GABAPENTIN 300 MG CAPSULE PO SCH ×3 (09:42→21:12)
[2017-07-08] MEDS: traMADol 50 MG TABLET PO PRN (09:46)
[2017-07-08] MEDS: cefTRIAXone 1,000 MG in SYRINGE 1 EACH IV SCH (17:57)
[2017-07-08] MEDS ORDERED: IPRATROPIUM 500 MCG/2.5 ML NEB RESP TX PRN (18:33)
[2017-07-08] MEDS ORDERED: IPRATROPIUM 500 MCG/2.5 ML NEB RESP TX SCH (19:00)
[2017-07-08] MEDS: LATANOPROST 0.005% OPH SOLN 2.5 ML BOTTLE LEFT EYE SCH (21:12)
[2017-07-09] MEDS: methylPREDNISolone SOD SUC 40 MG/1 ML VIAL IV SCH ×3 (02:10→16:34)
[2017-07-09 04:05] LABS: Calcium 8.6 MG/DL (8.5-10.1); Osmolality,Calculated 284.8 MOS/KG (273-304); Potassium 4.7 MMOL/L (3.5-5.1)
[2017-07-09] MEDS: traMADol 50 MG TABLET PO PRN (06:05)
[2017-07-09] MEDS: KETOROLAC 15 MG/1 ML VIAL IV SCH ×3 (06:06→21:18)
[2017-07-09] MEDS: LEVOTHYROXINE 100 MCG TABLET PO SCH (06:07)
[2017-07-09] MEDS: GABAPENTIN 300 MG CAPSULE PO SCH ×3 (08:14→20:31)
[2017-07-09] MEDS: PANTOPRAZOLE 40 MG TABLET PO SCH (08:14)
[2017-07-09] MEDS: DOCUSATE SODIUM 100 MG CAPSULE PO SCH ×2 (08:14→20:31)
[2017-07-09] MEDS ORDERED: TUBERCULIN SKIN TEST 0.1 ML SYRINGE INTRADERM ONE (15:03)
[2017-07-09] MEDS ORDERED: POLYETHYLENE GLYCOL POWDER 17 GM PACK PO PRN (15:47)
[2017-07-09] MEDS: cefTRIAXone 1,000 MG in SYRINGE 1 EACH IV SCH (16:30)
[2017-07-09] MEDS: MAGNESIUM HYDROXIDE SUSP 30 ML UDCUP PO SCH ×2 (16:34→23:06)
[2017-07-09] MEDS: LATANOPROST 0.005% OPH SOLN 2.5 ML BOTTLE LEFT EYE SCH (20:33)
[2017-07-10] MEDS: methylPREDNISolone SOD SUC 40 MG/1 ML VIAL IV SCH ×3 (00:51→17:03)
[2017-07-10 03:37] LABS: Basophils % 0.1 % (0.0-0.8); Hematocrit 33.2 VOL% (35.7-47.0); Hemoglobin 10.4 GM/DL (12.0-16.0); Immature Granulocytes % 0.9 %; Immature Granulocytes Absolute 0.15 #; Lymphocytes # 1.1 10*3/uL (1.4-4.0); Lymphocytes % 6.7 % (21.3-54.2); Mean Corpuscular HGB Conc 31.3 GM/DL (32-36); Mean Corpuscular Hemoglobin 29 PG (27-34); Mean Corpuscular Volume 91.7 FL (87-102); Mean Platelet Volume 10.8 FL (9.6-12.0); Monocytes # 0.5 10*3/uL (0.11-0.8); Monocytes % 3.2 % (1.7-12.7); Neutrophils # 15.2 10*3/uL (1.4-7.4); Neutrophils % 89.1 % (38.7-73.9); Platelet Count 312 T/CUMM (130-400); Red Blood Count 3.62 MC/CUMM (3.8-5.5); Red Cell Distribution Width 14.3 % (9.3-17.3)
[2017-07-10 03:58] LABS: Calcium 9.1 MG/DL (8.5-10.1); Potassium 4.7 MMOL/L (3.5-5.1)
[2017-07-10] MEDS: LEVOTHYROXINE 100 MCG TABLET PO SCH (05:54)
[2017-07-10] MEDS: KETOROLAC 15 MG/1 ML VIAL IV SCH ×3 (05:55→22:42)
[2017-07-10] MEDS: DOCUSATE SODIUM 100 MG CAPSULE PO SCH ×2 (09:28→20:17)
[2017-07-10] MEDS: PANTOPRAZOLE 40 MG TABLET PO SCH (09:28)
[2017-07-10] MEDS: GABAPENTIN 300 MG CAPSULE PO SCH ×3 (09:28→21:29)
[2017-07-10] MEDS: MAGNESIUM HYDROXIDE SUSP 30 ML UDCUP PO SCH ×3 (09:29→23:52)
[2017-07-10] MEDS: cefTRIAXone 1,000 MG in SYRINGE 1 EACH IV SCH (16:59)
[2017-07-10] MEDS: LATANOPROST 0.005% OPH SOLN 2.5 ML BOTTLE LEFT EYE SCH (20:17)
[2017-07-10 21:01] LABS: Apearance,Urine CLEAR (Clear); Bilirubin,Urine Negative (Negative); Blood, Urine Moderate mg/dL (Negative); Glucose,Urine (UA) 50 mg/dL (Negative); Ketones,Urine Negative (Negative); Mucus,Urine Occasional /LPF (Occasional); Nitrite,Urine Negative (Negative); Protein,Urine Negative; RBC,Urine 13 /HPF (0-4); Squamous Epithelial Cell,Urine Occasional /HPF (0-10); Urine Color Straw (Yellow); Urine Specific Gravity 1.012 (1.001-1.035); Urine Urobilinogen < 2.0 EU/DL (0.2-1.0); WBC,Urine 1 /HPF (0-6)
[2017-07-11] MEDS: methylPREDNISolone SOD SUC 40 MG/1 ML VIAL IV SCH ×3 (00:57→18:39)
[2017-07-11 04:19] LABS: Basophils % 0.2 % (0.0-0.8); Hematocrit 35.6 VOL% (35.7-47.0); Hemoglobin 11.3 GM/DL (12.0-16.0); Immature Granulocytes % 1.5 %; Immature Granulocytes Absolute 0.19 #; Lymphocytes % 7.9 % (21.3-54.2); Mean Corpuscular HGB Conc 31.7 GM/DL (32-36); Mean Corpuscular Hemoglobin 29 PG (27-34); Mean Corpuscular Volume 90.8 FL (87-102); Mean Platelet Volume 10.8 FL (9.6-12.0); Monocytes # 0.5 10*3/uL (0.11-0.8); Monocytes % 3.9 % (1.7-12.7); Neutrophils # 10.9 10*3/uL (1.4-7.4); Neutrophils % 86.5 % (38.7-73.9); Platelet Count 308 T/CUMM (130-400); Red Blood Count 3.92 MC/CUMM (3.8-5.5); Red Cell Distribution Width 14.5 % (9.3-17.3); White Blood Count 12.6 T/CUMM (4-12)
[2017-07-11 04:54] LABS: Calcium 8.6 MG/DL (8.5-10.1); Osmolality,Calculated 283.5 MOS/KG (273-304); Potassium 5.5 MMOL/L (3.5-5.1)
[2017-07-11] MEDS: LEVOTHYROXINE 100 MCG TABLET PO SCH (05:07)
[2017-07-11] MEDS: KETOROLAC 15 MG/1 ML VIAL IV SCH ×3 (05:07→21:23)
[2017-07-11] MEDS: MAGNESIUM HYDROXIDE SUSP 30 ML UDCUP PO SCH ×2 (10:01→18:01)
[2017-07-11] MEDS: DOCUSATE SODIUM 100 MG CAPSULE PO SCH ×2 (10:02→20:10)
[2017-07-11] MEDS: GABAPENTIN 300 MG CAPSULE PO SCH ×3 (10:03→20:09)
[2017-07-11] MEDS: PANTOPRAZOLE 40 MG TABLET PO SCH (10:03)
[2017-07-11] MEDS: cefTRIAXone 1,000 MG in SYRINGE 1 EACH IV SCH (18:35)
[2017-07-11] MEDS: LATANOPROST 0.005% OPH SOLN 2.5 ML BOTTLE LEFT EYE SCH (20:09)
[2017-07-12] MEDS: MAGNESIUM HYDROXIDE SUSP 30 ML UDCUP PO SCH ×3 (00:07→17:09)
[2017-07-12] MEDS: methylPREDNISolone SOD SUC 40 MG/1 ML VIAL IV SCH ×3 (01:24→17:59)
[2017-07-12 03:22] LABS: Basophils % 0.1 % (0.0-0.8); Hematocrit 36.6 VOL% (35.7-47.0); Hemoglobin 11.1 GM/DL (12.0-16.0); Immature Granulocytes % 1.8 %; Immature Granulocytes Absolute 0.26 #; Lymphocytes # 1.3 10*3/uL (1.4-4.0); Lymphocytes % 9.2 % (21.3-54.2); Mean Corpuscular HGB Conc 30.3 GM/DL (32-36); Mean Corpuscular Hemoglobin 28 PG (27-34); Mean Corpuscular Volume 92.4 FL (87-102); Mean Platelet Volume 11.2 FL (9.6-12.0); Monocytes # 0.6 10*3/uL (0.11-0.8); Monocytes % 4.3 % (1.7-12.7); Neutrophils % 84.6 % (38.7-73.9); Platelet Count 248 T/CUMM (130-400); Red Blood Count 3.96 MC/CUMM (3.8-5.5); Red Cell Distribution Width 14.3 % (9.3-17.3); White Blood Count 14.2 T/CUMM (4-12)
[2017-07-12 03:52] LABS: Calcium 8.5 MG/DL (8.5-10.1); Osmolality,Calculated 282.8 MOS/KG (273-304); Potassium 5.5 MMOL/L (3.5-5.1)
[2017-07-12] MEDS: KETOROLAC 15 MG/1 ML VIAL IV SCH ×3 (06:28→21:22)
[2017-07-12] MEDS: LEVOTHYROXINE 100 MCG TABLET PO SCH (06:28)
[2017-07-12] MEDS: DOCUSATE SODIUM 100 MG CAPSULE PO SCH ×2 (08:42→21:22)
[2017-07-12] MEDS: GABAPENTIN 300 MG CAPSULE PO SCH ×3 (08:43→21:22)
[2017-07-12] MEDS: PANTOPRAZOLE 40 MG TABLET PO SCH (08:43)
[2017-07-12] MEDS: cefTRIAXone 1,000 MG in SYRINGE 1 EACH IV SCH (18:04)
[2017-07-12] MEDS: traMADol 50 MG TABLET PO PRN (21:21)
[2017-07-12] MEDS: LATANOPROST 0.005% OPH SOLN 2.5 ML BOTTLE LEFT EYE SCH (21:23)
[2017-07-13] MEDS: methylPREDNISolone SOD SUC 40 MG/1 ML VIAL IV SCH ×3 (00:38→17:24)
[2017-07-13] MEDS: MAGNESIUM HYDROXIDE SUSP 30 ML UDCUP PO SCH ×3 (00:38→15:50)
[2017-07-13] MEDS: LEVOTHYROXINE 100 MCG TABLET PO SCH (06:05)
[2017-07-13 06:47] LABS: Basophils % 0.2 % (0.0-0.8); Hematocrit 36.9 VOL% (35.7-47.0); Hemoglobin 11.5 GM/DL (12.0-16.0); Immature Granulocytes % 2.4 %; Immature Granulocytes Absolute 0.45 #; Lymphocytes # 1.1 10*3/uL (1.4-4.0); Lymphocytes % 5.9 % (21.3-54.2); Mean Corpuscular HGB Conc 31.2 GM/DL (32-36); Mean Corpuscular Hemoglobin 28 PG (27-34); Mean Corpuscular Volume 90.9 FL (87-102); Mean Platelet Volume 10.5 FL (9.6-12.0); Monocytes # 0.5 10*3/uL (0.11-0.8); Monocytes % 2.8 % (1.7-12.7); Neutrophils # 16.6 10*3/uL (1.4-7.4); Neutrophils % 88.7 % (38.7-73.9); Platelet Count 305 T/CUMM (130-400); Red Blood Count 4.06 MC/CUMM (3.8-5.5); Red Cell Distribution Width 14.3 % (9.3-17.3); White Blood Count 18.7 T/CUMM (4-12)
[2017-07-13] MEDS: PANTOPRAZOLE 40 MG TABLET PO SCH (09:33)
[2017-07-13] MEDS: GABAPENTIN 300 MG CAPSULE PO SCH ×3 (09:34→21:14)
[2017-07-13] MEDS: DOCUSATE SODIUM 100 MG CAPSULE PO SCH ×2 (09:34→21:15)
[2017-07-13] MEDS: cefTRIAXone 1,000 MG in SYRINGE 1 EACH IV SCH (17:30)
[2017-07-13] MEDS: traMADol 50 MG TABLET PO PRN (21:14)
[2017-07-13] MEDS: LATANOPROST 0.005% OPH SOLN 2.5 ML BOTTLE LEFT EYE SCH (21:15)
[2017-07-14] MEDS: MAGNESIUM HYDROXIDE SUSP 30 ML UDCUP PO SCH ×2 (01:20→09:30)
[2017-07-14] MEDS: methylPREDNISolone SOD SUC 40 MG/1 ML VIAL IV SCH (02:17)
[2017-07-14] MEDS: LEVOTHYROXINE 100 MCG TABLET PO SCH (06:01)
[2017-07-14 06:43] LABS: Albumin 2.8 G/DL (3.4-5.0); Bilirubin,Total 0.4 MG/DL (0.2-1.0); Calcium 8.6 MG/DL (8.5-10.1); Osmolality,Calculated 278.1 MOS/KG (273-304); Potassium 5.1 MMOL/L (3.5-5.1); Total Protein 6.2 G/DL (6.4-8.3)
[2017-07-14 07:29] LABS: Basophils % 0.2 % (0.0-0.8); Hemoglobin 11.8 GM/DL (12.0-16.0); Immature Granulocytes % 2.4 %; Immature Granulocytes Absolute 0.46 #; Lymphocytes # 1.1 10*3/uL (1.4-4.0); Lymphocytes % 5.5 % (21.3-54.2); Mean Corpuscular HGB Conc 31.9 GM/DL (32-36); Mean Corpuscular Hemoglobin 29 PG (27-34); Mean Platelet Volume 10.4 FL (9.6-12.0); Monocytes # 0.7 10*3/uL (0.11-0.8); Monocytes % 3.6 % (1.7-12.7); Neutrophils # 17.1 10*3/uL (1.4-7.4); Neutrophils % 88.3 % (38.7-73.9); Platelet Count 309 T/CUMM (130-400); Red Blood Count 4.11 MC/CUMM (3.8-5.5); Red Cell Distribution Width 14.5 % (9.3-17.3); White Blood Count 19.4 T/CUMM (4-12)
[2017-07-14] MEDS ORDERED: OLMESARTAN 20 MG TABLET PO SCH (09:00)
[2017-07-14] MEDS: DOCUSATE SODIUM 100 MG CAPSULE PO SCH (09:30)
[2017-07-14] MEDS: PANTOPRAZOLE 40 MG TABLET PO SCH (09:30)
[2017-07-14] MEDS: GABAPENTIN 300 MG CAPSULE PO SCH ×2 (09:30→14:52)
[2017-07-14 11:06] VITALS: BP 122/79
[2017-07-14] MEDS ORDERED: methylPREDNISolone SOD SUC 40 MG/1 ML VIAL IM SCH (12:00)
[2017-07-14] MEDS ORDERED: CIPROFLOXACIN 500 MG TABLET PO SCH (13:30)
== END 2017-07-14 15:35 | disposition swing bed (61) | DRG 543 ==
LOC: EDUNIT# → N.EDINP 15:07 → N.ED 15:07 → N.EDINP 20:45 → N.3E 20:51
PROVIDERS: ADMIT Internal Medicine; ATTEND Internal Medicine

== ENCOUNTER 2017-07-15 10:21 | Observation (INO) ==
[2017-07-15] MEDS ORDERED: NITROGLYCERIN SL 0.4 MG TABLET SL PRN (10:49)
[2017-07-15] MEDS ORDERED: ASPIRIN 325 MG TABLET PO STA (10:49)
[2017-07-15] MEDS ORDERED: NITROGLYCERIN 2% OINT 1 INCH/GM PACK TOP STA (10:49)
[2017-07-15] MEDS ORDERED: MORPHINE 2 MG/1 ML SYRINGE IV PRN (10:49)
[2017-07-15] MEDS ORDERED: ONDANSETRON 4 MG/2 ML VIAL IV PRN ×2 (10:49→17:28)
[2017-07-15] MEDS ORDERED: ENOXAPARIN 100 MG/ML SYRINGE SUBCUT STA (10:49)
[2017-07-15 10:57] LABS: Basophils % 0.2 % (0.0-0.8); Eosinophils % 0.2 % (0.00-10.9); Hematocrit 38.2 VOL% (35.7-47.0); Immature Granulocytes % 3.3 %; Immature Granulocytes Absolute 0.67 #; Lymphocytes # 1.3 10*3/uL (1.4-4.0); Lymphocytes % 6.3 % (21.3-54.2); Mean Corpuscular HGB Conc 31.4 GM/DL (32-36); Mean Corpuscular Hemoglobin 29 PG (27-34); Mean Corpuscular Volume 92.5 FL (87-102); Mean Platelet Volume 10.4 FL (9.6-12.0); Monocytes # 1.4 10*3/uL (0.11-0.8); Monocytes % 6.6 % (1.7-12.7); Neutrophils # 17.1 10*3/uL (1.4-7.4); Neutrophils % 83.4 % (38.7-73.9); Platelet Count 307 T/CUMM (130-400); Red Blood Count 4.13 MC/CUMM (3.8-5.5); Red Cell Distribution Width 14.8 % (9.3-17.3); White Blood Count 20.5 T/CUMM (4-12)
[2017-07-15 11:06] LABS: PT Patient Result 10.2 SECS; Partial Thromboplastin Time < 21.0 SECS (0-40)
[2017-07-15] MEDS ORDERED: ENOXAPARIN 80 MG/0.8 ML SYRINGE SUBCUT ONE (11:13)
[2017-07-15] MEDS ORDERED: NITROGLYCERIN 2% OINT 1 INCH/GM PACK TOP ONE (11:13)
[2017-07-15] MEDS ORDERED: ASPIRIN 325 MG TABLET ONE (11:13)
[2017-07-15 11:27] LABS: Band Neutrophils 2 % (0-10); Hypochromasia 1+; Lymphocytes 7 % (20-55); Segmented Neutrophils 82 % (50-85); Total Cells Counted 100
[2017-07-15 11:33] LABS: Alanine Aminotransferase 35 U/L (13-56); Albumin 2.9 G/DL (3.4-5.0); Alkaline Phosphatase 135 U/L (45-117); Aspartate Amino Transferase 11 U/L (0-37); Bilirubin,Total < 0.39 MG/DL (0.2-1.0); Blood Urea Nitrogen 31 MG/DL (7-18); Calcium 8.5 MG/DL (8.5-10.1); Glucose 113 MG/DL (74-106); Osmolality,Calculated 280.8 MOS/KG (273-304); Potassium 4.2 MMOL/L (3.5-5.1); Sodium 137 MMOL/L (136-145); Total Protein 5.9 G/DL (6.4-8.3)
[2017-07-15 12:42] LABS: Apearance,Urine CLEAR (Clear); Bilirubin,Urine Negative (Negative); Blood, Urine Negative (Negative); Glucose,Urine (UA) Negative (Negative); Hyaline Casts,Urine 12 /LPF (0-3); Ketones,Urine Negative (Negative); Mucus,Urine Few /LPF (Occasional); Nitrite,Urine Positive (Negative); Protein,Urine Negative; RBC,Urine 1 /HPF (0-4); Squamous Epithelial Cell,Urine Occasional /HPF (0-10); Urine Color Amber (Yellow); Urine Specific Gravity 1.018 (1.001-1.035); WBC,Urine 1 /HPF (0-6)
[2017-07-15] MEDS ORDERED: ONDANSETRON 4 MG/2 ML VIAL ONE (14:37)
[2017-07-15] MEDS ORDERED: MORPHINE 2 MG/1 ML SYRINGE ONE (14:37)
[2017-07-15] MEDS ORDERED: ACETAMINOPHEN 325 MG TABLET PO PRN (17:28)
[2017-07-15] MEDS: SODIUM CHLORIDE 0.9% 1,000 ML IV SCH (18:44)
[2017-07-15] MEDS: TEMAZEPAM 15 MG CAPSULE PO PRN (21:48)
[2017-07-15] MEDS: DOCUSATE SODIUM 100 MG CAPSULE PO SCH (22:58)
[2017-07-16 05:28] LABS: Risk Ratio 2.01; VLDL CHOLESTEROL 25.8 MG/DL
[2017-07-16] MEDS ORDERED: LIDOCAINE 5% PATCH TRANSDERM PRN (07:15)
[2017-07-16] MEDS ORDERED: traMADol 50 MG TABLET PO PRN (07:15)
[2017-07-16] MEDS ORDERED: ACETAMINOPHEN 500 MG TABLET PO PRN (07:15)
[2017-07-16] MEDS ORDERED: PANTOPRAZOLE 40 MG TABLET PO SCH (09:00)
[2017-07-16] MEDS ORDERED: predniSONE 20 MG TABLET PO SCH (09:00)
[2017-07-16] MEDS ORDERED: CIPROFLOXACIN 500 MG TABLET PO SCH (09:00)
[2017-07-16] MEDS: ENOXAPARIN 30 MG/0.3 ML SYRINGE SUBCUT SCH (10:08)
[2017-07-16] MEDS: traMADol 50 MG TABLET PO SCH (10:08)
[2017-07-16] MEDS: DOCUSATE SODIUM 100 MG CAPSULE PO SCH ×3 (10:08→21:04)
[2017-07-16] MEDS: GABAPENTIN 300 MG CAPSULE PO SCH ×3 (10:08→21:04)
[2017-07-16] MEDS: PANTOPRAZOLE 40 MG TABLET PO SCH (10:09)
[2017-07-16] MEDS: BRIMONIDINE/TIMOLOL OPH SOLN 5 ML BOTTLE LEFT EYE SCH ×2 (10:14→21:02)
[2017-07-16] MEDS: METOPROLOL SUCCINATE XL 50 MG TABLET PO SCH (13:17)
[2017-07-16] MEDS: ASPIRIN CHEW 81 MG TABLET PO SCH (13:18)
[2017-07-16] MEDS: SODIUM CHLORIDE 0.9% 1,000 ML IV SCH (13:23)
[2017-07-16] MEDS ORDERED: MAGNESIUM HYDROXIDE SUSP 30 ML UDCUP PO PRN (15:44)
[2017-07-16] MEDS ORDERED: MAGNESIUM HYDROXIDE SUSP 30 ML UDCUP PO SCH ×2 (16:00→21:00)
[2017-07-16] MEDS: LACTULOSE 20 GM/30 ML UDCUP PO SCH ×3 (16:58→21:06)
[2017-07-16] MEDS: methylPREDNISolone SOD SUC 40 MG/1 ML VIAL IV SCH (16:59)
[2017-07-16] MEDS: LATANOPROST 0.005% OPH SOLN 2.5 ML BOTTLE LEFT EYE SCH (21:07)
[2017-07-16] MEDS: cefTRIAXone 250 MG in SYRINGE 1 EACH IV SCH (22:17)
[2017-07-16] MEDS: KETOROLAC 15 MG/1 ML VIAL IV SCH (23:01)
[2017-07-17] MEDS: methylPREDNISolone SOD SUC 40 MG/1 ML VIAL IV SCH ×3 (00:17→16:32)
[2017-07-17 04:46] LABS: Basophils % 0.1 % (0.0-0.8); Eosinophils % 0.1 % (0.00-10.9); Hematocrit 36.5 VOL% (35.7-47.0); Immature Granulocytes % 2.3 %; Immature Granulocytes Absolute 0.34 #; Lymphocytes # 0.9 10*3/uL (1.4-4.0); Lymphocytes % 5.9 % (21.3-54.2); Mean Corpuscular HGB Conc 30.1 GM/DL (32-36); Mean Corpuscular Hemoglobin 29 PG (27-34); Mean Corpuscular Volume 94.8 FL (87-102); Mean Platelet Volume 10.8 FL (9.6-12.0); Monocytes # 0.4 10*3/uL (0.11-0.8); Neutrophils % 88.6 % (38.7-73.9); Platelet Count 256 T/CUMM (130-400); Red Blood Count 3.85 MC/CUMM (3.8-5.5); Red Cell Distribution Width 14.9 % (9.3-17.3); White Blood Count 14.7 T/CUMM (4-12)
[2017-07-17 05:41] LABS: Albumin 2.4 G/DL (3.4-5.0); Bilirubin,Total 0.7 MG/DL (0.2-1.0); Calcium 8.1 MG/DL (8.5-10.1); Osmolality,Calculated 288.5 MOS/KG (273-304); Total Protein 5.3 G/DL (6.4-8.3)
[2017-07-17] MEDS ORDERED: SODIUM POLYSTYRENE SULFATE 15 GM/60 ML BOTTLE PO STA (07:34)
[2017-07-17] MEDS: KETOROLAC 15 MG/1 ML VIAL IV SCH ×3 (07:47→21:39)
[2017-07-17] MEDS: LEVOTHYROXINE 100 MCG TABLET PO SCH (07:47)
[2017-07-17] MEDS: ASPIRIN CHEW 81 MG TABLET PO SCH (10:02)
[2017-07-17] MEDS: PANTOPRAZOLE 40 MG TABLET PO SCH (10:02)
[2017-07-17] MEDS: GABAPENTIN 300 MG CAPSULE PO SCH ×3 (10:02→21:39)
[2017-07-17] MEDS: DOCUSATE SODIUM 100 MG CAPSULE PO SCH ×2 (10:02→21:39)
[2017-07-17] MEDS: ENOXAPARIN 30 MG/0.3 ML SYRINGE SUBCUT SCH (10:03)
[2017-07-17] MEDS: LACTULOSE 20 GM/30 ML UDCUP PO SCH ×2 (10:03→22:16)
[2017-07-17] MEDS: traMADol 50 MG TABLET PO SCH (10:03)
[2017-07-17] MEDS: METOPROLOL SUCCINATE XL 50 MG TABLET PO SCH (10:03)
[2017-07-17] MEDS: BRIMONIDINE/TIMOLOL OPH SOLN 5 ML BOTTLE LEFT EYE SCH ×2 (10:04→22:16)
[2017-07-17] MEDS: SODIUM CHLORIDE 0.9% 1,000 ML IV SCH (10:06)
[2017-07-17] MEDS: TEMAZEPAM 15 MG CAPSULE PO PRN (21:39)
[2017-07-17] MEDS: cefTRIAXone 250 MG in SYRINGE 1 EACH IV SCH (21:39)
[2017-07-17] MEDS: LATANOPROST 0.005% OPH SOLN 2.5 ML BOTTLE LEFT EYE SCH (22:16)
[2017-07-18] MEDS: SODIUM CHLORIDE 0.9% 1,000 ML IV SCH ×3 (04:12→20:07)
[2017-07-18 05:00] LABS: Basophils % 0.2 % (0.0-0.8); Eosinophils % 0.1 % (0.00-10.9); Hematocrit 35.9 VOL% (35.7-47.0); Hemoglobin 11.2 GM/DL (12.0-16.0); Immature Granulocytes % 1.8 %; Immature Granulocytes Absolute 0.22 #; Lymphocytes # 1.2 10*3/uL (1.4-4.0); Lymphocytes % 9.2 % (21.3-54.2); Mean Corpuscular HGB Conc 31.2 GM/DL (32-36); Mean Corpuscular Hemoglobin 29 PG (27-34); Mean Corpuscular Volume 91.8 FL (87-102); Mean Platelet Volume 10.6 FL (9.6-12.0); Monocytes # 0.4 10*3/uL (0.11-0.8); Monocytes % 3.5 % (1.7-12.7); Neutrophils # 10.7 10*3/uL (1.4-7.4); Neutrophils % 85.2 % (38.7-73.9); Platelet Count 232 T/CUMM (130-400); Red Blood Count 3.91 MC/CUMM (3.8-5.5); Red Cell Distribution Width 14.7 % (9.3-17.3); White Blood Count 12.6 T/CUMM (4-12)
[2017-07-18 05:37] LABS: Calcium 8.1 MG/DL (8.5-10.1); Osmolality,Calculated 279.8 MOS/KG (273-304); Potassium 4.7 MMOL/L (3.5-5.1)
[2017-07-18] MEDS: LEVOTHYROXINE 100 MCG TABLET PO SCH (06:18)
[2017-07-18] MEDS: KETOROLAC 15 MG/1 ML VIAL IV SCH ×4 (06:18→23:08)
[2017-07-18] MEDS: methylPREDNISolone SOD SUC 40 MG/1 ML VIAL IV SCH ×3 (08:53→16:43)
[2017-07-18] MEDS: DOCUSATE SODIUM 100 MG CAPSULE PO SCH ×2 (08:54→23:07)
[2017-07-18] MEDS: GABAPENTIN 300 MG CAPSULE PO SCH ×3 (08:54→20:45)
[2017-07-18] MEDS: BRIMONIDINE/TIMOLOL OPH SOLN 5 ML BOTTLE LEFT EYE SCH ×2 (08:54→20:44)
[2017-07-18] MEDS: ENOXAPARIN 30 MG/0.3 ML SYRINGE SUBCUT SCH (08:54)
[2017-07-18] MEDS: METOPROLOL SUCCINATE XL 50 MG TABLET PO SCH (08:54)
[2017-07-18] MEDS: traMADol 50 MG TABLET PO SCH (08:54)
[2017-07-18] MEDS: PANTOPRAZOLE 40 MG TABLET PO SCH (08:54)
[2017-07-18] MEDS: ASPIRIN CHEW 81 MG TABLET PO SCH (08:54)
[2017-07-18] MEDS: LACTULOSE 20 GM/30 ML UDCUP PO SCH ×2 (08:54→23:07)
[2017-07-18] MEDS: TEMAZEPAM 15 MG CAPSULE PO PRN (20:44)
[2017-07-18] MEDS: cefTRIAXone 250 MG in SYRINGE 1 EACH IV SCH (20:44)
[2017-07-18] MEDS: LATANOPROST 0.005% OPH SOLN 2.5 ML BOTTLE LEFT EYE SCH (20:44)
[2017-07-19] MEDS: methylPREDNISolone SOD SUC 40 MG/1 ML VIAL IV SCH ×3 (00:40→18:25)
[2017-07-19] MEDS: LEVOTHYROXINE 100 MCG TABLET PO SCH (06:05)
[2017-07-19] MEDS: KETOROLAC 15 MG/1 ML VIAL IV SCH ×2 (06:05→15:01)
[2017-07-19] MEDS: SODIUM CHLORIDE 0.9% 1,000 ML IV SCH (07:02)
[2017-07-19] MEDS: LACTULOSE 20 GM/30 ML UDCUP PO SCH ×2 (08:28→21:47)
[2017-07-19] MEDS: traMADol 50 MG TABLET PO SCH (08:28)
[2017-07-19] MEDS: METOPROLOL SUCCINATE XL 50 MG TABLET PO SCH (08:29)
[2017-07-19] MEDS: PANTOPRAZOLE 40 MG TABLET PO SCH (08:29)
[2017-07-19] MEDS: GABAPENTIN 300 MG CAPSULE PO SCH ×3 (08:29→21:48)
[2017-07-19] MEDS: DOCUSATE SODIUM 100 MG CAPSULE PO SCH ×2 (08:33→21:48)
[2017-07-19] MEDS: ENOXAPARIN 30 MG/0.3 ML SYRINGE SUBCUT SCH (08:34)
[2017-07-19] MEDS: BRIMONIDINE/TIMOLOL OPH SOLN 5 ML BOTTLE LEFT EYE SCH ×2 (08:37→21:48)
[2017-07-19] MEDS: ASPIRIN CHEW 81 MG TABLET PO SCH (08:41)
[2017-07-19] MEDS ORDERED: KETOROLAC 15 MG/1 ML VIAL IV PRN (17:54)
[2017-07-19] MEDS ORDERED: fentaNYL 12 MCG/HR PATCH TRANSDERM SCH (18:00)
[2017-07-19] MEDS: LATANOPROST 0.005% OPH SOLN 2.5 ML BOTTLE LEFT EYE SCH (21:49)
[2017-07-19] MEDS: TEMAZEPAM 15 MG CAPSULE PO PRN (21:55)
[2017-07-20] MEDS: methylPREDNISolone SOD SUC 40 MG/1 ML VIAL IV SCH ×2 (00:25→08:35)
[2017-07-20] MEDS: cefTRIAXone 250 MG in SYRINGE 1 EACH IV SCH (00:25)
[2017-07-20] MEDS: LEVOTHYROXINE 100 MCG TABLET PO SCH (06:44)
[2017-07-20] MEDS: DOCUSATE SODIUM 100 MG CAPSULE PO SCH (08:32)
[2017-07-20] MEDS: METOPROLOL SUCCINATE XL 50 MG TABLET PO SCH (08:32)
[2017-07-20] MEDS: ASPIRIN CHEW 81 MG TABLET PO SCH (08:32)
[2017-07-20] MEDS: GABAPENTIN 300 MG CAPSULE PO SCH (08:32)
[2017-07-20] MEDS: PANTOPRAZOLE 40 MG TABLET PO SCH (08:32)
[2017-07-20] MEDS: traMADol 50 MG TABLET PO SCH (08:33)
[2017-07-20] MEDS: ENOXAPARIN 30 MG/0.3 ML SYRINGE SUBCUT SCH (08:34)
[2017-07-20] MEDS: BRIMONIDINE/TIMOLOL OPH SOLN 5 ML BOTTLE LEFT EYE SCH (08:35)
[2017-07-20] MEDS: LACTULOSE 20 GM/30 ML UDCUP PO SCH (09:09)
[2017-07-20 11:54] VITALS: BP 118/70
[2017-07-20] MEDS ORDERED: LACTULOSE 20 GM/30 ML UDCUP PO PRN (12:54)
[2017-07-21] MEDS ORDERED: ENOXAPARIN 40 MG/0.4 ML SYRINGE SUBCUT SCH (09:00)
== END 2017-07-20 15:10 | disposition swing bed (61) ==
LOC: EDUNIT# → EDBD → N.ED 10:21 → N.EDINP 10:21 → N.TELEN 17:15
PROVIDERS: ADMIT Internal Medicine; ATTEND Internal Medicine

== ENCOUNTER 2017-11-05 09:13 | Inpatient (IN) ==
[2017-11-05] MEDS ORDERED: KETOROLAC 30 MG/1 ML VIAL IV STA (09:35)
[2017-11-05] MEDS ORDERED: ORPHENADRINE 60 MG/2 ML VIAL IV STA (09:35)
[2017-11-05] MEDS ORDERED: methylPREDNISolone SOD SUC 125 MG/2 ML VIAL IV STA (09:36)
[2017-11-05] MEDS ORDERED: KETOROLAC 30 MG/1 ML VIAL ONE (09:51)
[2017-11-05] MEDS ORDERED: methylPREDNISolone SOD SUC 125 MG/2 ML VIAL ONE (09:51)
[2017-11-05] MEDS ORDERED: ORPHENADRINE 60 MG/2 ML VIAL ONE (09:51)
[2017-11-05 12:09] LABS: Basophils # 0.1 10*3/uL (0.0-0.2); Basophils % 0.5 % (0.0-0.8); Eosinophils # 0.1 10*3/uL (0.0-0.87); Eosinophils % 1.1 % (0.00-10.9); Hematocrit 37.6 VOL% (35.7-47.0); Hemoglobin 11.4 GM/DL (12.0-16.0); Immature Granulocytes % 0.9 %; Immature Granulocytes Absolute 0.11 #; Lymphocytes # 0.8 10*3/uL (1.4-4.0); Lymphocytes % 6.5 % (21.3-54.2); Mean Corpuscular HGB Conc 30.3 GM/DL (32-36); Mean Corpuscular Hemoglobin 28 PG (27-34); Mean Corpuscular Volume 92.6 FL (87-102); Monocytes # 0.5 10*3/uL (0.11-0.8); Monocytes % 4.1 % (1.7-12.7); Neutrophils # 10.6 10*3/uL (1.4-7.4); Neutrophils % 86.9 % (38.7-73.9); Platelet Count 339 T/CUMM (130-400); Red Blood Count 4.06 MC/CUMM (3.8-5.5); Red Cell Distribution Width 15.3 % (9.3-17.3); White Blood Count 12.2 T/CUMM (4-12)
[2017-11-05 12:15] LABS: INR 0.9; Partial Thromboplastin Time 23.2 SECS (0-40)
[2017-11-05 12:38] LABS: Alanine Aminotransferase 15 U/L (13-56); Albumin 2.8 G/DL (3.4-5.0); Alkaline Phosphatase 96 U/L (45-117); Aspartate Amino Transferase 19 U/L (0-37); Blood Urea Nitrogen 24 MG/DL (7-18); Calcium 8.8 MG/DL (8.5-10.1); Glucose 102 MG/DL (74-106); Potassium 4.1 MMOL/L (3.5-5.1); Sodium 136 MMOL/L (136-145); Total Protein 6.9 G/DL (6.4-8.3); Troponin I Only < 0.015 NG/ML (0.00-0.045)
[2017-11-05 13:06] LABS: Amorphous Crystals,Urine Occasional /HPF (Few); Apearance,Urine Slightly Hazy (Clear); Bilirubin,Urine Negative (Negative); Blood, Urine Small mg/dL (Negative); Glucose,Urine (UA) Negative (Negative); Ketones,Urine Negative (Negative); Mucus,Urine Occasional /LPF (Occasional); Nitrite,Urine Negative (Negative); Protein,Urine Negative; Urine Color Yellow (Yellow); Urine Urobilinogen < 2.0 EU/DL (0.2-1.0)
[2017-11-05] MEDS ORDERED: ONDANSETRON 4 MG/2 ML VIAL IV PRN (13:30)
[2017-11-05] MEDS ORDERED: ACETAMINOPHEN 500 MG TABLET PO PRN (13:55)
[2017-11-05] MEDS: GABAPENTIN 300 MG CAPSULE PO SCH ×2 (15:25→21:10)
[2017-11-05] MEDS: traMADol 50 MG TABLET PO PRN (21:09)
[2017-11-05] MEDS: predniSONE 5 MG TABLET PO SCH (21:10)
[2017-11-05] MEDS: traMADol 50 MG TABLET PO SCH (21:11)
[2017-11-06] MEDS: MORPHINE 4 MG/1 ML VIAL IV PRN ×2 (00:36→05:18)
[2017-11-06 05:31] LABS: Basophils % 0.1 % (0.0-0.8); Eosinophils % 0.1 % (0.00-10.9); Hematocrit 36.6 VOL% (35.7-47.0); Hemoglobin 11.2 GM/DL (12.0-16.0); Immature Granulocytes Absolute 0.11 #; Lymphocytes # 1.2 10*3/uL (1.4-4.0); Lymphocytes % 10.9 % (21.3-54.2); Mean Corpuscular HGB Conc 30.6 GM/DL (32-36); Mean Corpuscular Hemoglobin 28 PG (27-34); Mean Corpuscular Volume 90.1 FL (87-102); Mean Platelet Volume 10.2 FL (9.6-12.0); Monocytes # 0.5 10*3/uL (0.11-0.8); Monocytes % 4.6 % (1.7-12.7); Neutrophils # 9.2 10*3/uL (1.4-7.4); Neutrophils % 83.3 % (38.7-73.9); Platelet Count 357 T/CUMM (130-400); Red Blood Count 4.06 MC/CUMM (3.8-5.5); Red Cell Distribution Width 14.9 % (9.3-17.3); White Blood Count 11.1 T/CUMM (4-12)
[2017-11-06 06:03] LABS: Calcium 9.1 MG/DL (8.5-10.1); Osmolality,Calculated 277.8 MOS/KG (273-304)
[2017-11-06] MEDS ORDERED: BACITRACIN 50,000 UNIT VIAL ONE (06:24)
[2017-11-06] MEDS: LEVOTHYROXINE 100 MCG TABLET PO SCH (06:39)
[2017-11-06] MEDS ORDERED: ALBUTEROL/IPRATROPIUM 3 ML NEB RESP TX ONE (06:47)
[2017-11-06] MEDS: ASPIRIN CHEW 81 MG TABLET PO SCH (08:00)
[2017-11-06] MEDS: predniSONE 5 MG TABLET PO SCH ×2 (08:00→20:32)
[2017-11-06] MEDS: LEFLUNOMIDE 10 MG TABLET PO SCH (08:00)
[2017-11-06] MEDS: GABAPENTIN 300 MG CAPSULE PO SCH ×3 (08:00→20:32)
[2017-11-06] MEDS: PANTOPRAZOLE 40 MG TABLET PO SCH (08:00)
[2017-11-06] MEDS: traMADol 50 MG TABLET PO SCH ×2 (08:01→20:31)
[2017-11-06] MEDS ORDERED: ceFAZolin 1,000 MG VIAL ONE (08:33)
[2017-11-06] MEDS ORDERED: ESMOLOL 100 MG/10 ML VIAL IV ONE ×2 (10:33→10:35)
[2017-11-06] MEDS ORDERED: PROPOFOL 200 MG/20 ML VIAL IV ONE (10:34)
[2017-11-06] MEDS ORDERED: NEOSTIGMINE 10 MG/10 ML VIAL ONE (10:35)
[2017-11-06] MEDS ORDERED: ONDANSETRON 4 MG/2 ML VIAL ONE ×2 (10:35→10:44)
[2017-11-06] MEDS: HYDROmorphone 2 MG/1 ML VIAL IV PRN ×3 (10:35→11:09)
[2017-11-06] MEDS ORDERED: SEVOFLURANE 1 UNIT/15 MINUTE INH ONE (10:35)
[2017-11-06] MEDS ORDERED: fentaNYL 100 MCG/2 ML VIAL ONE (10:35)
[2017-11-06] MEDS ORDERED: HYDROCORTISONE 100 MG VIAL ONE (10:35)
[2017-11-06] MEDS ORDERED: GLYCOPYRROLATE 0.4 MG/2 ML VIAL ONE (10:35)
[2017-11-06] MEDS ORDERED: ROCURONIUM 100 MG/10 ML VIAL IV ONE (10:35)
[2017-11-06] MEDS ORDERED: LACTATED RINGERS 1,000 ML IV ONE (10:35)
[2017-11-06] MEDS ORDERED: ONDANSETRON 4 MG/2 ML VIAL IV PRN (10:40)
[2017-11-06] MEDS ORDERED: HYDROmorphone 2 MG/1 ML VIAL ONE (10:44)
[2017-11-06] MEDS ORDERED: LACTATED RINGERS 1,000 ML IV SCH (11:00)
[2017-11-06] MEDS: traMADol 50 MG TABLET PO PRN (17:39)
[2017-11-07 05:08] LABS: Basophils % 0.1 % (0.0-0.8); Eosinophils % 0.3 % (0.00-10.9); Hematocrit 30.2 VOL% (35.7-47.0); Hemoglobin 9.4 GM/DL (12.0-16.0); Immature Granulocytes % 0.8 %; Immature Granulocytes Absolute 0.08 #; Lymphocytes # 1.2 10*3/uL (1.4-4.0); Mean Corpuscular HGB Conc 31.1 GM/DL (32-36); Mean Corpuscular Hemoglobin 28 PG (27-34); Mean Corpuscular Volume 90.1 FL (87-102); Mean Platelet Volume 10.3 FL (9.6-12.0); Monocytes # 1.1 10*3/uL (0.11-0.8); Monocytes % 10.5 % (1.7-12.7); Neutrophils # 8.2 10*3/uL (1.4-7.4); Neutrophils % 77.3 % (38.7-73.9); Platelet Count 289 T/CUMM (130-400); Red Blood Count 3.35 MC/CUMM (3.8-5.5); Red Cell Distribution Width 15.3 % (9.3-17.3); White Blood Count 10.6 T/CUMM (4-12)
[2017-11-07 05:38] LABS: Calcium 8.2 MG/DL (8.5-10.1); Osmolality,Calculated 270.2 MOS/KG (273-304); Potassium 4.3 MMOL/L (3.5-5.1)
[2017-11-07] MEDS: LEVOTHYROXINE 100 MCG TABLET PO SCH (06:03)
[2017-11-07] MEDS: LEFLUNOMIDE 10 MG TABLET PO SCH (08:27)
[2017-11-07] MEDS: ASPIRIN CHEW 81 MG TABLET PO SCH (08:27)
[2017-11-07] MEDS: GABAPENTIN 300 MG CAPSULE PO SCH ×4 (08:27→20:41)
[2017-11-07] MEDS: predniSONE 5 MG TABLET PO SCH ×2 (08:27→20:41)
[2017-11-07] MEDS: PANTOPRAZOLE 40 MG TABLET PO SCH (08:28)
[2017-11-07] MEDS: traMADol 50 MG TABLET PO SCH ×2 (08:28→20:41)
[2017-11-07] MEDS: MORPHINE 4 MG/1 ML VIAL IV PRN (08:37)
[2017-11-07] MEDS: ENOXAPARIN 40 MG/0.4 ML SYRINGE SUBCUT SCH (10:57)
[2017-11-07] MEDS: traMADol 50 MG TABLET PO PRN (20:40)
[2017-11-08] MEDS: LEVOTHYROXINE 100 MCG TABLET PO SCH (05:56)
[2017-11-08] MEDS: PANTOPRAZOLE 40 MG TABLET PO SCH (08:36)
[2017-11-08] MEDS: GABAPENTIN 300 MG CAPSULE PO SCH ×3 (08:36→20:09)
[2017-11-08] MEDS: predniSONE 5 MG TABLET PO SCH ×2 (08:36→20:09)
[2017-11-08] MEDS: LEFLUNOMIDE 10 MG TABLET PO SCH (08:36)
[2017-11-08] MEDS: traMADol 50 MG TABLET PO SCH ×2 (08:36→20:09)
[2017-11-08] MEDS: ASPIRIN CHEW 81 MG TABLET PO SCH (08:36)
[2017-11-08] MEDS: ENOXAPARIN 40 MG/0.4 ML SYRINGE SUBCUT SCH (11:03)
[2017-11-08] MEDS ORDERED: TUBERCULIN SKIN TEST 0.1 ML SYRINGE INTRADERM ONE (12:00)
[2017-11-09] MEDS: traMADol 50 MG TABLET PO PRN (01:33)
[2017-11-09] MEDS: LEVOTHYROXINE 100 MCG TABLET PO SCH (05:45)
[2017-11-09] MEDS: LEFLUNOMIDE 10 MG TABLET PO SCH (08:51)
[2017-11-09] MEDS: predniSONE 5 MG TABLET PO SCH (08:51)
[2017-11-09] MEDS: GABAPENTIN 300 MG CAPSULE PO SCH ×2 (08:51→14:54)
[2017-11-09] MEDS: traMADol 50 MG TABLET PO SCH (08:51)
[2017-11-09] MEDS: ASPIRIN CHEW 81 MG TABLET PO SCH (08:51)
[2017-11-09] MEDS: PANTOPRAZOLE 40 MG TABLET PO SCH (08:51)
[2017-11-09] MEDS: MAGNESIUM HYDROXIDE SUSP 30 ML UDCUP PO SCH ×2 (08:51→16:18)
[2017-11-09] MEDS: ENOXAPARIN 40 MG/0.4 ML SYRINGE SUBCUT SCH (12:54)
[2017-11-09] MEDS ORDERED: BISACODYL 10 MG SUPP RECTAL ONE (14:07)
[2017-11-09 17:41] VITALS: BP 128/52
== END 2017-11-09 16:08 | DRG 470 ==
LOC: EDUNIT# → EDBD → N.ED 09:13 → N.EDINP 11:48 → N.3E 12:31
PROVIDERS: ADMIT Internal Medicine; ATTEND Internal Medicine

== ENCOUNTER 2019-04-08 12:58 | Inpatient (IN) ==
[2019-04-08 14:05] LABS: Basophils % 0.3 % (0.0-0.8); Eosinophils % 0.1 % (0.00-10.9); Hematocrit 42.4 VOL% (35.7-47.0); Hemoglobin 13.1 GM/DL (12.0-16.0); Immature Granulocytes % 1.4 %; Immature Granulocytes Absolute 0.11 #; Lymphocytes # 0.4 10*3/uL (1.4-4.0); Lymphocytes % 4.5 % (21.3-54.2); Mean Corpuscular HGB Conc 30.9 GM/DL (32-36); Mean Platelet Volume 11.1 FL (9.6-12.0); Monocytes % 5.7 % (1.7-12.7); NRBC # 0.02 10*3/uL; Platelet Count 266 T/CUMM (130-400); Red Blood Count 4.24 MC/CUMM (3.8-5.5); Red Cell Distribution Width 13.9 % (9.3-17.3); White Blood Count 7.9 T/CUMM (4-12)
[2019-04-08 14:11] LABS: ABG Base Excess 0.4 MMOL/L (-2.5-2.5); ABG HCO3 24.6 MMOL/L (20-26); ABG PCO2 50.6 MM HG (35-48); ABG PH 7.336 (7.35-7.45); ABG PO2 75.1 MM HG (80-95)
[2019-04-08 14:34] LABS: Lymphocytes 5 % (20-55); Platelet Estimate Normal; Segmented Neutrophils 88 % (50-85)
[2019-04-08 14:37] LABS: Ovalocytes Slight; Total Cells Counted 100
[2019-04-08] MEDS ORDERED: ONDANSETRON 4 MG/2 ML VIAL IV PRN (15:03)
[2019-04-08] MEDS ORDERED: DOCUSATE SODIUM 100 MG CAPSULE PO PRN (15:03)
[2019-04-08] MEDS ORDERED: ENOXAPARIN 80 MG/0.8 ML SYRINGE SUBCUT STA (15:06)
[2019-04-08] MEDS ORDERED: ASPIRIN 325 MG TABLET PO STA (15:07)
[2019-04-08 15:11] LABS: Albumin 2.3 G/DL (3.4-5.0); Bilirubin,Total 0.5 MG/DL (0.2-1.0); Calcium 9.1 MG/DL (8.5-10.1); Osmolality,Calculated 294.4 MOS/KG (273-304); Total Protein 7.3 G/DL (6.4-8.3)
[2019-04-08] MEDS ORDERED: PROMETHAZINE 25 MG/1 ML VIAL IM PRN (15:11)
[2019-04-08] MEDS ORDERED: NITROGLYCERIN SL 0.4 MG TABLET SL PRN (15:14)
[2019-04-08] MEDS ORDERED: ALBUTEROL/IPRATROPIUM 3 ML NEB RESP TX PRN (15:21)
[2019-04-08 15:36] LABS: Risk Ratio 2.7; Thyroid Stimulating Hormone 0.58 uIU/ml (0.358-3.74)
[2019-04-08] MEDS ORDERED: FUROSEMIDE 40 MG/4 ML VIAL IV ONE (16:42)
[2019-04-08] MEDS: LISINOPRIL 5 MG TABLET PO SCH (16:45)
[2019-04-08] MEDS: predniSONE 5 MG TABLET PO SCH (20:59)
[2019-04-08] MEDS: CARVEDILOL 3.125 MG TABLET PO SCH (20:59)
[2019-04-08] MEDS: MELATONIN 3 MG TABLET PO SCH (20:59)
[2019-04-09] MEDS ORDERED: ENOXAPARIN 80 MG/0.8 ML SYRINGE SUBCUT SCH (03:00)
[2019-04-09 05:11] LABS: Basophils % 0.1 % (0.0-0.8); Eosinophils % 0.1 % (0.00-10.9); Hematocrit 35.7 VOL% (35.7-47.0); Hemoglobin 10.9 GM/DL (12.0-16.0); Immature Granulocytes % 1.4 %; Immature Granulocytes Absolute 0.11 #; Lymphocytes # 0.4 10*3/uL (1.4-4.0); Lymphocytes % 5.4 % (21.3-54.2); Mean Corpuscular HGB Conc 30.5 GM/DL (32-36); Mean Corpuscular Volume 100.6 FL (87-102); Mean Platelet Volume 10.6 FL (9.6-12.0); Monocytes % 4.8 % (1.7-12.7); NRBC # 0.02 10*3/uL; Neutrophils % 88.2 % (38.7-73.9); Platelet Count 260 T/CUMM (130-400); Red Blood Count 3.55 MC/CUMM (3.8-5.5); Red Cell Distribution Width 13.8 % (9.3-17.3); White Blood Count 8.1 T/CUMM (4-12)
[2019-04-09 05:30] LABS: Calcium 9.2 MG/DL (8.5-10.1); Osmolality,Calculated 301.1 MOS/KG (273-304)
[2019-04-09 05:37] LABS: Band Neutrophils 6 % (0-10); Eosinophils 1 % (0-10); Hypochromasia Slight; Lymphocytes 7 % (20-55); Platelet Estimate Adequate; Segmented Neutrophils 80 % (50-85); Total Cells Counted 100
[2019-04-09] MEDS: predniSONE 5 MG TABLET PO SCH ×2 (08:42→21:43)
[2019-04-09] MEDS: ASPIRIN CHEW 81 MG TABLET PO SCH (08:42)
[2019-04-09] MEDS: LISINOPRIL 5 MG TABLET PO SCH (08:42)
[2019-04-09] MEDS: LEFLUNOMIDE 10 MG TABLET PO SCH (08:42)
[2019-04-09] MEDS: CARVEDILOL 3.125 MG TABLET PO SCH ×2 (08:42→21:43)
[2019-04-09] MEDS: LEVOTHYROXINE 75 MCG TABLET PO SCH (08:42)
[2019-04-09] MEDS: PANTOPRAZOLE 40 MG TABLET PO SCH (08:42)
[2019-04-09] MEDS: FUROSEMIDE 20 MG/2 ML VIAL IV SCH ×2 (08:43→16:15)
[2019-04-09] MEDS: ACETAMINOPHEN 325 MG TABLET PO PRN (09:31)
[2019-04-09] MEDS: MELATONIN 3 MG TABLET PO SCH (21:43)
[2019-04-10 05:38] LABS: Basophils # 0.1 10*3/uL (0.0-0.2); Basophils % 0.5 % (0.0-0.8); Eosinophils % 0.1 % (0.00-10.9); Hematocrit 35.5 VOL% (35.7-47.0); Hemoglobin 11.1 GM/DL (12.0-16.0); Immature Granulocytes % 1.9 %; Immature Granulocytes Absolute 0.19 #; Lymphocytes # 0.5 10*3/uL (1.4-4.0); Lymphocytes % 4.5 % (21.3-54.2); Mean Corpuscular HGB Conc 31.3 GM/DL (32-36); Mean Corpuscular Volume 97.8 FL (87-102); Mean Platelet Volume 10.6 FL (9.6-12.0); Monocytes % 4.7 % (1.7-12.7); Neutrophils % 88.3 % (38.7-73.9); Platelet Count 280 T/CUMM (130-400); Red Blood Count 3.63 MC/CUMM (3.8-5.5); Red Cell Distribution Width 13.6 % (9.3-17.3); White Blood Count 10.2 T/CUMM (4-12)
[2019-04-10 05:57] LABS: Calcium 9.9 MG/DL (8.5-10.1); Osmolality,Calculated 309.6 MOS/KG (273-304)
[2019-04-10 06:03] LABS: Band Neutrophils 9 % (0-10); Lymphocytes 5 % (20-55); Platelet Estimate Adequate; Segmented Neutrophils 82 % (50-85); Total Cells Counted 100
[2019-04-10] MEDS: CARVEDILOL 3.125 MG TABLET PO SCH (08:23)
[2019-04-10] MEDS: PANTOPRAZOLE 40 MG TABLET PO SCH (08:23)
[2019-04-10] MEDS: LISINOPRIL 5 MG TABLET PO SCH (08:23)
[2019-04-10] MEDS: ASPIRIN CHEW 81 MG TABLET PO SCH (08:23)
[2019-04-10] MEDS: ACETAMINOPHEN 325 MG TABLET PO PRN ×2 (08:23→23:10)
[2019-04-10] MEDS: predniSONE 5 MG TABLET PO SCH (08:24)
[2019-04-10] MEDS: POTASSIUM CHLORIDE 20 MEQ TABLET PO PRN ×3 (08:24→12:09)
[2019-04-10] MEDS: LEVOTHYROXINE 75 MCG TABLET PO SCH (08:24)
[2019-04-10] MEDS: FUROSEMIDE 20 MG/2 ML VIAL IV SCH ×2 (08:38→15:42)
[2019-04-10] MEDS: LEFLUNOMIDE 10 MG TABLET PO SCH (08:45)
[2019-04-10] MEDS: MORPHINE 4 MG/1 ML VIAL IV PRN (10:20)
[2019-04-10] MEDS: CARVEDILOL 6.25 MG TABLET PO SCH ×2 (10:20→22:13)
[2019-04-10] MEDS ORDERED: guaiFENesin 200 MG/10 ML UDCUP PO PRN (10:52)
[2019-04-10] MEDS ORDERED: LEVOFLOXACIN INJ 750 MG in PREMIX 1 EACH IV SCH (12:00)
[2019-04-10] MEDS: ENOXAPARIN 40 MG/0.4 ML SYRINGE SUBCUT SCH (12:09)
[2019-04-10] MEDS: GABAPENTIN 300 MG CAPSULE PO SCH ×2 (14:26→22:13)
[2019-04-10] MEDS ORDERED: predniSONE 20 MG TABLET PO ONE (16:27)
[2019-04-10] MEDS ORDERED: ALBUTEROL 2.5 MG/3 ML NEB RESP TX PRN (16:33)
[2019-04-10] MEDS: predniSONE 20 MG TABLET PO SCH (17:55)
[2019-04-10] MEDS: ALBUTEROL/IPRATROPIUM 3 ML NEB RESP TX SCH (19:22)
[2019-04-10] MEDS ORDERED: ESCITALOPRAM 10 MG TABLET PO SCH (21:00)
[2019-04-10] MEDS: MELATONIN 3 MG TABLET PO SCH (22:12)
[2019-04-10] MEDS: POLYVINYL ALCOHOL 1.4% OPH SOLN 15 ML BOTTLE BOTH EYES SCH (22:13)
[2019-04-10] MEDS: BRIMONIDINE/TIMOLOL OPH SOLN 5 ML BOTTLE LEFT EYE SCH (22:13)
[2019-04-11] MEDS: ALBUTEROL/IPRATROPIUM 3 ML NEB RESP TX SCH ×3 (01:11→12:29)
[2019-04-11 05:09] LABS: Basophils # 0.1 10*3/uL (0.0-0.2); Basophils % 0.6 % (0.0-0.8); Hemoglobin 10.4 GM/DL (12.0-16.0); Immature Granulocytes % 2.3 %; Immature Granulocytes Absolute 0.21 #; Lymphocytes # 0.5 10*3/uL (1.4-4.0); Lymphocytes % 5.6 % (21.3-54.2); Mean Corpuscular HGB Conc 30.6 GM/DL (32-36); Mean Corpuscular Volume 101.2 FL (87-102); Mean Platelet Volume 10.3 FL (9.6-12.0); Monocytes % 2.7 % (1.7-12.7); Neutrophils % 88.8 % (38.7-73.9); Platelet Count 259 T/CUMM (130-400); Red Blood Count 3.36 MC/CUMM (3.8-5.5); Red Cell Distribution Width 13.9 % (9.3-17.3); White Blood Count 8.9 T/CUMM (4-12)
[2019-04-11 05:40] LABS: Calcium 9.7 MG/DL (8.5-10.1)
[2019-04-11 05:50] LABS: Band Neutrophils 2 % (0-10); Lymphocytes 3 % (20-55); Segmented Neutrophils 94 % (50-85); Total Cells Counted 100
[2019-04-11 05:51] LABS: Hypochromasia Slight; Platelet Estimate Normal
[2019-04-11] MEDS: FUROSEMIDE 20 MG/2 ML VIAL IV SCH (08:09)
[2019-04-11] MEDS: CARVEDILOL 6.25 MG TABLET PO SCH (08:30)
[2019-04-11] MEDS: BRIMONIDINE/TIMOLOL OPH SOLN 5 ML BOTTLE LEFT EYE SCH (08:30)
[2019-04-11] MEDS: LEFLUNOMIDE 10 MG TABLET PO SCH (08:30)
[2019-04-11] MEDS: POLYVINYL ALCOHOL 1.4% OPH SOLN 15 ML BOTTLE BOTH EYES SCH (08:30)
[2019-04-11] MEDS: ASPIRIN CHEW 81 MG TABLET PO SCH (08:30)
[2019-04-11] MEDS: predniSONE 20 MG TABLET PO SCH (08:31)
[2019-04-11] MEDS: LEVOTHYROXINE 75 MCG TABLET PO SCH (08:31)
[2019-04-11] MEDS: PANTOPRAZOLE 40 MG TABLET PO SCH (08:31)
[2019-04-11] MEDS: GABAPENTIN 300 MG CAPSULE PO SCH (08:31)
[2019-04-11] MEDS ORDERED: CALCIUM (CARBONATE) 500 MG TABLET PO SCH (09:00)
[2019-04-11] MEDS ORDERED: FUROSEMIDE 20 MG TABLET PO SCH (09:00)
[2019-04-11] MEDS ORDERED: CHOLECALCIFEROL 5,000 UNIT TABLET PO SCH (09:00)
[2019-04-11] MEDS ORDERED: DILTIAZEM CD 120 MG CAPSULE PO SCH (09:00)
[2019-04-11] MEDS: ENOXAPARIN 40 MG/0.4 ML SYRINGE SUBCUT SCH (10:53)
[2019-04-11] MEDS: MORPHINE 4 MG/1 ML VIAL IV PRN (10:53)
[2019-04-11 11:52] VITALS: BP 132/55
== END 2019-04-11 13:58 | disposition home or self-care (01) | DRG 189 ==
LOC: EDUNIT# → EDBD → N.ED 12:58 → SUATTDRO 15:03 → N.EDINP 15:03 → N.TELEN 15:48
PROVIDERS: ADMIT Physician Assistant; ATTEND Internal Medicine